=== PATIENT | female | born 1995 | race Caucasian/White ===

== ENCOUNTER 2019-06-07 21:33 | Emergency (ER) | payer SELFPAY ==
[2019-06-07 21:41] VITALS: BP 121/75; PULSE 137; RESP 18; TEMP 36.5; O2SAT 100; BMI 26.5
--- NOTE | 2019-06-07 22:41 | ED_ITS ---
HPI - General Adult General: Chief complaint: General Medical Stated complaint: HERPES FLARE UP Time Seen by Provider: 06/07/19 22:20 History of Present Illness: HPI narrative: Preston Reese is a 24-year-old female who comes in complaining of a flareup of her genital herpes. She states it has been going on for a month and she just cannot get control of her pain. She is had a for quite some time. She does admit to continued sexual activity and she has been told that she is recent been exposed to gonorrhea. She is denying any vaginal discharge or bleeding at this time. Associated symptoms: Deny chest pain, confusion, diaphoresis, dyspnea, headache(s), malaise, nausea, rash, palpitations, syncope or vomiting Review of Systems General: Reports: other (negative unless marked) Const: Denies: fever, chills, body aches, fatigue, malaise or diaphoresis Eyes: Denies: change in vision or blurry vision ENMT: Denies: throat pain, painful swallowing, hoarseness, ear pain, ear discharge, Change in hearing or nasal discharge Card: Denies: chest pain, palpitations, irregular heart rhythm, syncope, pre- syncope, shortness of breath on exertion or shortness of breath when lying down Resp: Denies: shortness of breath, productive cough, non-productive cough, wheezing, coughing up blood or chest congestion GI: Denies: abdominal pain, nausea, vomiting, vomiting blood, coffee grounds in vomit, diarrhea, constipation, cramping, blood in stool or black tarry stool : Denies: flank pain, painful urination, urinary frequency, urinary urgency, decreased urine ouput, urinary incontinence or blood in urine Musc: Denies: neck pain, back pain, extremity pain, extremity swelling, joint pain, joint swelling, joint warmth or joint stiffness Skin/Breast: Denies: rash, skin tenderness or yellow skin Neuro: Denies: headache, numbness in extremities, weakness in extremities, changes in sensation, lack of coordination, difficulty walking, dizziness, vertigo or confusion Endo: Denies: excessive thirst, tired all the time, cold intolerance, excessive sweating, flushing or hot flashes Alli/Lymph: Denies: easy bruising, easy bleeding, petechiae or enlarged lymph nodes All/Imm: Denies: hives, throat swelling, tongue swelling, facial swelling or acute wheezing PFSH ED PFSH: Medical History Genital herpes Social History Smoking and tobacco status: current every day smoker Female Reproductive History: Date of last menstrual period: 05/24/19 Physical Exam Const: COMMON NORMALS: no apparent distress, oriented x3, no limitations, healthy appearing and well nourished EXAM LIMITATIONS: no altered mental status GENERAL APPEARANCE: cooperative, well kempt and well developed ORIENTATION/CONSCIOUSNESS: Yes awake HENMT: COMMON NORMALS: normocephalic, head/scalp atraumatic, hearing grossly normal bilaterally, external ears normal, EAC's normal, external nose normal and moist oral mucous membranes HEAD & SCALP: normal to inspection, normocephalic and atraumatic FACE & SINUS: normal facial exam and face symmetric NOSE: external nose normal and nares normal EXTERNAL EAR: Yes external ears normal EXTERNAL AUDITORY CANAL: EAC's normal MOUTH: oral and palatal mucosa normal and tongue normal Eye: COMMON NORMALS: PERRL, EOMs intact bilaterally, conjunctivae normal and no scleral icterus GENERAL EYE: normal appearance of both eyes and normal light reflex CONJUNCTIVA: Yes conjunctivae normal SCLERA: sclerae normal CORNEA: Yes corneas normal PUPIL: Yes PERRL DIRECT OPHTHALMOSCOPY: Yes normal light reflex Neck/C-Spine: COMMON NORMALS: full ROM, no lymphadenopathy, supple, no meningeal signs and no JVD GENERAL: Yes normal visual inspection and Yes trachea midline CERVICAL SPINE: Yes cervical ROM normal Chest: COMMONS NORMALS: inspection of chest normal and palpation of chest normal Resp: COMMON NORMALS: normal respiratory effort, no retractions, no use of accessory muscles and clear to auscultation bilaterally EFFORT & INSPECTION: Yes able to speak in complete sentences AUSCULTATION: clear to auscultation bilaterally Cardio: COMMON NORMALS: no JVD, regular rate, regular rhythm, S1 normal heart sound, S2 normal heart sound, no gallops, no clicks, no murmurs and no rub JUGULAR VENOUS DISTENTION: no JVD RATE: regular rate RHYTHM: regular rhythm HEART SOUNDS: S1 normal and S2 normal GI: COMMON NORMALS: soft to palpation, non-tender, no hepatosplenomegaly and no masses INSPECTION: Yes normal to inspection PALPATION: Yes soft and Yes no hepatosplenomegaly : COMMON NORMALS: Yes no CVA tenderness BLADDER/KIDNEY EXAM: Yes no CVA tenderness EXTERNAL FEMALE EXAM: Yes other (Multiple herpetic lesions noted to both labia. Mild watery discharge.) Back/Pelvis: COMMON NORMALS: no CVA tenderness, thoracic and lumbar spine normal to inspection, no thoracic nor lumbar tenderness and thoraco-lumbar ROM normal Extremity: COMMON NORMALS: normal to inspection, full ROM, normal capillary refill, no joint enlargement, no clubbing, cyanosis or edema and no calf tenderness Neuro: COMMON NORMALS: oriented x3, CN's II-XII intact bilaterally, moves all extremities, no focal motor deficits and no sensory deficits noted MENINGEAL SIGNS: Yes no meningeal signs Psych: COMMON NORMALS: mental status grossly normal, thought process normal, cooperative, affect normal, speech normal and activity/motor behavior normal APPEARANCE: Yes well kempt SPEECH: Yes normal speech THOUGHT PROCESS: normal thought process Skin: COMMON NORMALS: no rashes or lesions noted, skin turgor normal, no jaundice, no petechiae and no mottling GENERAL SKIN EXAM: no rashes or lesions noted and turgor normal Course Vital Signs: Vital signs: Vital Signs Temperature 97.7 F 06/07/19 21:41 Pulse Rate 102 H 06/08/19 00:02 Respiratory Rate 18 06/08/19 00:02 Blood Pressure 99/77 06/08/19 00:02 Pulse Oximetry 99 06/08/19 00:02 MDM - General Adult MDM Narrative: Medical decision making narrative: Patient has significant herpetic outbreak at this time. I empirically treated her for gonorrhea and chlamydia and she went home on medicine for a UTI. She also received Valtrex for her outbreak of herpes. Lab Data: Attestation: I reviewed the patient's lab results. Labs: Lab Results 06/07/19 06/07/19 Range/Units 23:12 23:12 HCG, Qual Negative (Negative) Urine Color Yellow (Yellow) Urine Appearance Clear (CLEAR) Urine pH 6.5 (5-7) Ur Specific Gravit y 1.020 (1.005-1.030) Urine Protein Neg (Negative) Urine Glucose (UA) Norm (Normal) Urine Ketones Negative (Negative) Urine Blood 2+ H (Negative) Urine Nitrate Positive H (Negative) Urine Bilirubin Neg (NEGATIVE) Urine Urobilinogen 1 H (Negative) mg/dL Ur Leukocyte Valery ase 2+ H (Negative) Urine RBC 0-4 H (0-2) /hpf Urine WBC 25-40 H (0-5) /hpf Ur Squamous Epith Cells 15-25 H (0-5) Urine Bacteria 3+ H (NONE) Imaging Data^: CXR: My impression: No acute cardiopulmonary findings. Probable loop recorder present. Discharge Plan Discharge Patient Disposition: Home, Self-Care Clinical Impression: Acute cystitis with hematuria Genital herpes Qualifiers: Herpes simplex infection site: vulvovaginitis Qualified Code(s): A60.04 - Herpesviral vulvovaginitis Condition: Stable Prescriptions: New Valtrex 1 gram tablet 1,000 mg PO DAILY 5 Days Qty: 5 RF: 0 hydrocodone-acetaminophen 5-325 mg tablet 1 tab PO Q6H PRN (Reason: pain) Qty: 14 RF: 0 Keflex 500 mg capsule 500 mg PO Q12H 7 Days Qty: 14 RF: 0 Discharge Orders: Discharge Order (Routine); Ordered 06/07/19 Ordered By: Estela Plummer Discharge Diet: Usual diet Discharge Activity: Increase activity as tolerated Patient Instructions: Genital Herpes - Female, Genital Herpes Simplex (ED), Urinary Tract Infection in Women (ED) Activity Restrictions/Additional Instructions: NO SEXUAL ACTIVITY UNTIL ALL LESIONS CLEAR-using condoms can decrease risk of transmission to partner. Please follow up with primary care for re-evaluation in case lesions are not improving. They can also check to make sure your UTI has cleared. Return to the ED for worsening pain/lesions, abdominal pain, nausea/vomiting, fevers greater than 100.4, or any other concerns you may have. 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
[2019-06-07] MEDS: water for injection-sterile 10 ML (23:02)
[2019-06-07] MEDS: ondansetron 4 MG Tablet 8 MG PO (23:08)
[2019-06-07] MEDS: azithromycin 250 mg Tablet 1000 MG PO (23:08)
[2019-06-07] MEDS: cefTRIAXone 1,000 mg SDV 1000 MG IM (23:08)
[2019-06-07 23:31] LABS: HCG Qualitative Urine. Negative (Negative)
[2019-06-07 23:34] LABS: Urine Appearance Clear (CLEAR); Urine Color Yellow (Yellow); pH Urine 6.5 (5-7)
[2019-06-07 23:35] LABS: Bilirubin Urine Neg (NEGATIVE); Blood Urine 2+ (Negative); Glucose Urine UA Norm (Normal); Ketones Urine Negative (Negative); Leukocyte Esterase Urine 2+ (Negative); Nitrate Urine Positive (Negative); Protein Urine Neg (Negative); Urobilinogen Urine 1 mg/dL (Negative)
[2019-06-07 23:36] LABS: Add Urine Culture? Yes; Bacteria Urine 3+; RBC Urine 0-4 /hpf (0-2); Squamous Epithelial Cell Urine 15-25 (0-5); WBC Urine 25-40 /hpf (0-5)
[2019-06-07] MEDS: valACYclovir 1,000 mg Tablet 1000 MG PO (23:53)
[2019-06-07] MEDS: HYDROcodone-acetaminophen 5-325 mg Tablet 2 TAB PO (23:53)
[2019-06-08 00:02] VITALS: BP 99/77; PULSE 102; RESP 18; O2SAT 99
== END 2019-06-08 00:04 | disposition home or self-care (01) ==
PROVIDERS: Emergency Provider Emergency Medicine
DX: A60.04 Herpesviral vulvovaginitis (principal); N30.01 Acute cystitis with hematuria; F17.210 Nicotine dependence, cigarettes, uncomplicated
CPT/HCPCS: 12345; 81001; 81025; 87077; 87086; 87186; 87491; 87591; 96372; 99282; 99283; J0696; Q0144; Q0162

== ENCOUNTER 2020-07-30 01:19 | Emergency (ER) | payer MEDICAID, SELFPAY ==
[2020-07-30 01:24] VITALS: BP 141/86; PULSE 111; RESP 16; TEMP 36.4; O2SAT 100; BMI 30.2
--- NOTE | 2020-07-30 01:25 | W.ED.FEMALGU ---
HPI - Female Genitourinary General: Chief complaint: Urogenital-Female Stated complaint: Possible STD Time Seen by Provider: 07/30/20 01:21 Source: patient Mode of arrival: ambulatory Limitations: no limitations History of Present Illness: HPI Narrative: 25-year-old female states she was contacted today by some and she is expected with and told her that they tested positive for an STD. She is unsure what the STD was. She is asymptomatic currently. She denies any vaginal discharge. She states that she has had some slight abdominal cramping denies any pain currently. Denies any vaginal bleeding. Denies any fevers. Associated symptoms: Deny abdominal pain, headache(s) or nausea Date of Last Menstrual Period: 05/24/19 Review of Systems Const: Denies: fever(s), chills, body aches or change in appetite Eyes: Denies: blurry vision or eye discomfort ENMT: Denies: throat pain or dental pain Card: Denies: chest pain Resp: Denies: dyspnea GI: Denies: abdominal pain, nausea, vomiting or diarrhea : Denies: dysuria Musc: Denies: neck pain or back pain Skin/Breast: Denies: rash Neuro: Denies: headache(s) Psych: Denies: depression Alli/Lymph: Denies: easy bruising All/Imm: Denies: urticaria PFSH ED PFSH: Medical History (Updated 07/30/20 @ 02:09 by Gema Villanueva MD) Genital herpes Social History Smoking and tobacco status: current every day smoker Female Reproductive History: Date of last menstrual period: 05/24/19 Physical Exam Const: COMMON NORMALS: no acute distress, patient oriented x3 and healthy appearing HENMT: COMMON NORMALS: normocephalic and atraumatic HEAD & SCALP: normocephalic and atraumatic Eye: COMMON NORMALS: Equal, round and reactive pupils present and EOMs intact bilaterally PUPIL: Yes Equal, round and reactive pupils present Neck/C-Spine: COMMON NORMALS: full ROM and supple Chest: COMMONS NORMALS: normal inspection of the chest and normal palpation of entire chest wall Resp: COMMON NORMALS: normal respiratory effort, No retractions, No use of accessory muscles and clear to auscultation bilaterally AUSCULTATION: clear to auscultation bilaterally Cardio: COMMON NORMALS: regular rate, regular rhythm and No murmurs present (Cardio) RATE: regular rate RHYTHM: regular rhythm GI: COMMON NORMALS: Normal to inspection, nondistended, normoactive bowel sounds present, Soft to palpation, non-tender and no masses PALPATION: Yes Soft to palpation : OTHER: Slight amount of a clear discharge on speculum exam no cervicitis noted Extremity: COMMON NORMALS: normal to inspection and full ROM Neuro: COMMON NORMALS: patient oriented x3, moves all extremities and no focal motor deficits Psych: COMMON NORMALS: mental status grossly normal, Normal thought process present and cooperative THOUGHT PROCESS: Normal thought process present Skin: COMMON NORMALS: no rashes or lesions noted and no wounds GENERAL SKIN EXAM: no rashes or lesions noted Course Vital Signs: Vital signs: Vital Signs Temperature 97.6 F 07/30/20 01:24 Pulse Rate 111 H 07/30/20 01:24 Respiratory Rate 16 07/30/20 02:13 Blood Pressure 141/86 07/30/20 01:24 Pulse Oximetry 100 07/30/20 01:24 MDM - Female MDM Narrative: Medical decision making narrative: Patient presents here with STD exposure with possible STD. Will treat her with Rocephin and azithromycin here will follow cultures. Her wet prep is negative. She is stable for discharge and return if worsening. Lab Data: Labs: Lab Results 07/30/20 07/30/20 Range/Units 02:00 02:00 HCG, Qual Negative (Negative) Urine Color Yellow (Yellow) Urine Appearance Sl hazy (CLEAR) Urine pH 5 (5-7) Ur Specific Gravit y 1.015 (1.005-1.030) Urine Protein Neg (Negative) Urine Glucose (UA) Norm (Normal) Urine Ketones Negative (Negative) Urine Blood Neg (Negative) Urine Nitrate Positive H (Negative) Urine Bilirubin Neg (Negative) Urine Urobilinogen Norm (Negative) mg/dL Ur Leukocyte Valery ase Negative (Negative) Urine RBC 0-4 H (0-2) /hpf Urine WBC 0-4 H (0-5) /hpf Ur Squamous Epith Cells 0-4 H (0-5) /hpf Amorphous Sediment Not Reportable Urine Bacteria 3+ H (NONE) /hpf Discharge Plan Discharge Patient Disposition: Home Clinical Impression: Exposure to STD Condition: Stable Prescriptions: No Action hydrocodone-acetaminophen 5-325 mg tablet 1 tab PO Q6H PRN (Reason: pain) Qty: 14 RF: 0 Discharge Orders: Discharge ED (Routine); Ordered 07/30/20 Ordered By: Gema Villanueva Discharge Diet: Advance as tolerated Discharge Activity: Resume usual activity Patient Instructions: Sexually Transmitted Diseases (ED), Safe Sex (ED) 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
--- NOTE | 2020-07-30 01:51 | PC.NURSE ---
Assisted MD Villanueva with pelvic exam. Pt tolerated well.
[2020-07-30] MEDS: azithromycin 250 mg Tablet 1000 MG PO (02:00)
[2020-07-30 02:12] LABS: Add Urine Culture? Yes; Add Urine Microscopic? YES; Bacteria Urine 3+ /hpf; Bilirubin Urine Neg (Negative); Blood Urine Neg (Negative); Glucose Urine UA Norm (Normal); HCG Qualitative Urine. Negative (Negative); Ketones Urine Negative (Negative); Leukocyte Esterase Urine Negative (Negative); Nitrate Urine Positive (Negative); Protein Urine Neg (Negative); RBC Urine 0-4 /hpf (0-2); Specific Gravity, Urine 1.015 (1.005-1.030); Squamous Epithelial Cell Urine 0-4 /hpf (0-5); Urine Appearance SL Hazy (CLEAR); Urine Color Yellow (Yellow); Urobilinogen Urine Norm (Negative); WBC Urine 0-4 /hpf (0-5); pH Urine 5 (5-7)
[2020-07-30 02:13] VITALS: RESP 16
--- NOTE | 2020-07-31 17:59 | PC.NURSE ---
left message with pt's home for her to call ER and get + chalmydia results.
--- NOTE | 2020-07-31 20:13 | PC.NURSE ---
contact made to Preston Mann and informed her that she was positive for Chalmydia Trachomatis. Pt has been treated prior to discharge and was told to inform her partners that she was positive and that they need to be treated. SHe states she would and follow up with PCP or clinic.
== END 2020-07-30 02:14 | disposition home or self-care (01) ==
PROVIDERS: Emergency Provider Emergency Medicine
DX: Z20.2 Contact with and (suspected) exposure to infections with a predominantly sexual mode of transmission (principal)
CPT/HCPCS: 81001; 81025; 87077; 87086; 87186; 87210; 87491; 87591; 96372; 99283; J0696; Q0144

== ENCOUNTER 2021-03-13 05:45 | Emergency (ER) | payer MEDICAID, SELFPAY ==
[2021-03-13 05:54] VITALS: BP 132/73; PULSE 120; RESP 20; TEMP 36.6; O2SAT 99; BMI 30.1
[2021-03-13 05:57] VITALS: BP 132/73; PULSE 114; RESP 18; O2SAT 100
--- NOTE | 2021-03-13 06:02 | W.ED.WOUNDLC ---
HPI - Wound/Laceration General: Chief Complaint: Wound/Laceration Stated Complaint: cut hand Time Seen by Provider: 03/13/21 06:02 Source: patient Mode of arrival: ambulatory History of Present Illness: 6-year-old female presents to the emergency room with complaint of a laceration to her right fifth finger. She was cutting some cardboard with a knife and slipped and cut her finger. She is not able to flex the finger. Onset (ago): minute(s) Extremity Location: Right: hand (Right fifth finger palmar surface) Place: home Context: accidental Associated symptoms: Reports inability to move; Denies chills, fever(s), nausea or vomiting Treatments prior to arrival: bandage Review of Systems Const: Denies: fever(s), chills, body aches, change in appetite, fatigue or malaise Card: Denies: chest pain, edema, dyspnea on exertion or orthopnea Resp: Denies: dyspnea, productive cough or non-productive cough GI: Denies: abdominal pain, nausea, vomiting, hematemesis, coffee ground emesis, diarrhea, constipation, bloating, hematochezia or melena : Denies: flank pain, difficulty voiding, dysuria, urinary frequency or urinary urgency PFS ED PFSH: Medical History Genital herpes STD (female) Social History Smoking and tobacco status: current every day smoker Female Reproductive History: Date of last menstrual period: 05/24/19 Physical Exam Const: COMMON NORMALS: no acute distress GENERAL APPEARANCE: cooperative and comfortable ORIENTATION/CONSCIOUSNESS: Yes awake, Yes oriented to person, Yes oriented to place and Yes oriented to time HENMT: COMMON NORMALS: normocephalic, atraumatic and hearing grossly normal bilaterally HEAD & SCALP: normocephalic and atraumatic Resp: COMMON NORMALS: normal respiratory effort, No retractions, No use of accessory muscles and clear to auscultation bilaterally AUSCULTATION: clear to auscultation bilaterally Cardio: COMMON NORMALS: regular rate, regular rhythm and No murmurs present (Cardio) RATE: regular rate RHYTHM: regular rhythm Extremity: OTHER: Right fifth finger along the palmar surface at the PIP joint is a full-thickness laceration across the finger. There is a little bit of an angulated portion proximal at the lateral aspect. It is full-thickness involving the tendon. Patient has altered sensation to the tip and inability to flex the finger except at the metacarpophalangeal joint. Neuro: SENSORIUM/ORIENTATION: Yes oriented to person, Yes oriented to place and Yes oriented to time Skin: COMMON NORMALS: no rashes or lesions noted GENERAL SKIN EXAM: no rashes or lesions noted Procedures Laceration Laceration 1: Site: hand (Right hand fifth finger) Side (If applicable): right Size (cm): 2 Description: linear Depth: involves muscle layer and involves tendon Local Anesthetic: lidocaine 1% (Digital nerve block enforced at the site locally) Amount of anesthesia used (mL): 6 Pre-repair: wound explored and irrigated extensively Skin layer closed with: nylon Size (cm): 4-0 Technique: simple, interrupted Subcutaneous layer closed with: vicryl Size: 5-0 Number of sutures: 1 Technique: other (Plan cleaning irrigating the wound there is a singular arterial laceration. This was tied off with a [id number] 5-0 Vicryl suture) Course Vital Signs: Vital signs: Vital Signs Temperature 97.8 F 03/13/21 05:54 Pulse Rate 114 H 03/13/21 05:57 Respiratory Rate 18 03/13/21 05:57 Blood Pressure 132/73 03/13/21 05:57 Pulse Oximetry 100 03/13/21 05:57 MDM - Wound/Laceration Medical Decision Making Laceration repaired as above. Wound care instructions given. Will have case management make arrangements for a referral to hand surgery for repair of tendon. Discharge Plan Discharge Patient Disposition: Home Clinical Impression: Laceration, Flexor tendon laceration of finger with open wound Condition: Stable Prescriptions: New cephalexin 500 mg capsule 500 mg PO TID 5 Days Qty: 15 0RF mupirocin 2 % ointment 1 applic topical BID Qty: 15 0RF No Action naproxen [Naprosyn] 500 mg tablet 500 mg PO BID Qty: 20 0RF Discharge Orders: Discharge ED (Routine); Ordered 03/13/21 Ordered By: Miguel Desouza Patient Instructions: Laceration (ED), Acute Wounds (ED), Opioid Safety Activity Restrictions/Additional Instructions: Wound care instructions as per handout. Apply topical antibiotic ointment twice a day. Case management make arrangements for you to see the hand surgeon to repair the tendon laceration. 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
[2021-03-13] MEDS: tetanus-dipt-pertussis 0.5 mL SDV IM (06:22)
[2021-03-13] MEDS: lidocaine 1% INJ 20 mL INJECTION (06:35)
[2021-03-13] MEDS: bacitracin ointment Pkt 1 EACH TOPICAL (07:23)
[2021-03-13 07:24] VITALS: BP 128/68; PULSE 110; RESP 18; O2SAT 99
--- NOTE | 2021-03-16 10:50 | DCPLANNER ---
Addendum entered by Cesia Chanel 03/20/21 09:48: Letty from ortho emailed case coordinator stating that after review of patients chart, that patient needs to follow up with a hand surgeon. range manager called patient at phone number [phone], phone line is busy. range manager was unable to speak with anyone else on patients face sheet. range manager was going to ask where patient would like to go for follow up. Original Note: range manager had message to schedule a follow up appointment for patient with ortho. range manager called the ortho clinic, spoke with Letty, gave clinic patients information. range manager was told that patients information would be printed and reviewed. Clinic will call patient with appointment information.
== END 2021-03-13 07:23 | disposition home or self-care (01) ==
PROVIDERS: Emergency Provider Family Medicine
DX: S61.216A Laceration without foreign body of right little finger without damage to nail, initial encounter (principal); S66.126A Laceration of flexor muscle, fascia and tendon of right little finger at wrist and hand level, initial encounter; F17.210 Nicotine dependence, cigarettes, uncomplicated; W26.0XXA Contact with knife, initial encounter; Z23 Encounter for immunization
CPT/HCPCS: 12041; 90471; 90715; 99283

== ENCOUNTER 2021-03-17 01:58 | Emergency (ER) | payer MEDICAID, SELFPAY ==
[2021-03-17 02:03] VITALS: BP 135/94; PULSE 109; RESP 16; O2SAT 95; BMI 29.6
--- NOTE | 2021-03-17 02:07 | W.ED.FEMALGU ---
HPI - Female Genitourinary General: Chief complaint: General Medical Stated complaint: STD Time Seen by Provider: 03/17/21 02:02 Source: patient Mode of arrival: ambulatory Limitations: no limitations History of Present Illness: Patient is a 26-year-old female who presents to ED today with a concern for possible STD. Patient states her boyfriend was recently seen for complaints of penile discharge and he was told that all sexual partners need to get tested/treated. Patient is complaining of some dysuria, mild vaginal itching and discharge. She denies dyspareunia. She is not having any vaginal bleeding. No fevers, chills, body aches, nausea/vomiting. She also has a complaint of a lump inside her vaginal canal. MD elicited complaint: dysuria, vaginal discharge, possible STD and genital itching Onset (ago): day(s) Severity: mild Vaginal discharge: white Vaginal bleeding: none Urinary symptoms: Dysuria Associated symptoms: Reports vaginal discharge; Deny abdominal pain or nausea Sexual activity: Yes Patient : No Date of Last Menstrual Period: 03/15/21 Review of Systems Const: Denies: fever(s), chills, body aches, fatigue or malaise GI: Denies: abdominal pain, nausea, vomiting, diarrhea, change in bowel habits or change in stool character : Reports: dysuria, genital pruritis and vaginal discharge; Denies: flank pain, difficulty voiding, urinary frequency, urinary urgency, urinary hesitancy, hematuria, vaginal bleeding or pelvic pain Musc: Denies: back pain PFS ED PFSH: Medical History Genital herpes STD (female) Social History Smoking and tobacco status: current every day smoker Female Reproductive History: Date of last menstrual period: 03/15/21 Physical Exam Const: COMMON NORMALS: no acute distress, patient oriented x3, no limitations, alert and well nourished GI: COMMON NORMALS: Normal to inspection, nondistended, normoactive bowel sounds present, Soft to palpation, non-tender, No hepatosplenomegaly present and no masses PALPATION: Yes Soft to palpation and Yes No hepatosplenomegaly present : COMMON NORMALS: Yes no CVA tenderness, Yes normal external appearance, Yes normal bimanual exam, Yes No adnexal tenderness and Yes no masses BLADDER/KIDNEY EXAM: Yes no CVA tenderness EXTERNAL FEMALE EXAM: Yes normal appearance of the urethra SPECULUM EXAM - CERVIX: Yes Abnormal cervical discharge present yellow, No Cervical lesion present, No Cervical mass present, No Cervical tenderness present and Yes Other cervical findings present (cervical os easily bleeds with swab collection) BIMANUAL EXAM - VAGINA & UTERUS: Yes normal bimanual exam and No Cervical tenderness present BIMANUAL EXAM - ADNEXA, OTHER: Yes normal adnexae OTHER: cervix itself appears normal apart from large amount of thick yellow discharge present; cervical os is friable and bleeds easily with swab collection Back/Pelvis: COMMON NORMALS: no CVA tenderness Neuro: COMMON NORMALS: patient oriented x3 SENSORIUM/ORIENTATION: Yes alert Course Vital Signs: Vital signs: Vital Signs Pulse Rate 109 H 03/17/21 02:03 Respiratory Rate 16 03/17/21 02:03 Blood Pressure 135/94 03/17/21 02:03 Pulse Oximetry 95 03/17/21 02:03 MDM - Female Medical Decision Making Patient here with complaints of vaginal discharge, itching, and some dysuria. She states sexual partner was having symptoms of penile discharge. I have no concerns for PID at this time but pelvic exam is significant for cervicitis/discharge. She will be given IM rocephin and placed on oral doxycycline for gonorrhea/chlamydia coverage. Trich negative. Recommend abstaining from sexual activity until treatment finished and tests of cure performed. All sexual partners need to get tested and treated. Lab Data Laboratory Results Urine Color Yellow (Yellow) 03/17/21 02:20 Urine Appearance Sl hazy (CLEAR) 03/17/21 02:20 Urine pH 7 (5-7) 03/17/21 02:20 Ur Specific [place] 1.010 (1.005-1.030) 03/17/21 02:20 Urine Protein Neg (Negative) 03/17/21 02:20 Urine Glucose (UA) Norm (Normal) 03/17/21 02:20 Urine Ketones Negative (Negative) 03/17/21 02:20 Urine Blood Neg (Negative) 03/17/21 02:20 Urine Nitrate Positive (Negative) H 03/17/21 02:20 Urine Bilirubin Neg (Negative) 03/17/21 02:20 Urine Urobilinogen 1 mg/dL (Negative) H 03/17/21 02:20 Ur Leukocyte Esterase Trace (Negative) H 03/17/21 02:20 Urine RBC 0-4 /hpf (0-2) H 03/17/21 02:20 Urine WBC 15-25 /hpf (0-5) H 03/17/21 02:20 Ur Squamous Epith Cells 0-4 /hpf (0-5) H 03/17/21 02:20 Amorphous Sediment Not Reportable 03/17/21 02:20 Urine Bacteria 4+ /hpf (NONE) H 03/17/21 02:20 Urine Mucus 4+ /hpf 03/17/21 02:20 Urine HCG, Qual Negative (Negative) 03/17/21 02:20 Discharge Plan Discharge Patient Disposition: Home Clinical Impression: Concern about STD in female without diagnosis, Cervical discharge Condition: Stable Prescriptions: New doxycycline monohydrate 100 mg capsule 100 mg PO Q12H 7 Days Qty: 14 0RF No Action naproxen [Naprosyn] 500 mg tablet 500 mg PO BID Qty: 20 0RF cephalexin 500 mg capsule 500 mg PO TID 5 Days Qty: 15 0RF mupirocin 2 % ointment 1 applic topical BID Qty: 15 0RF Discharge Orders: Discharge ED (Routine); Ordered 03/17/21 Ordered By: Estela Plummer Referrals: Skinny Galarza DO [Primary Care Provider] - Patient Instructions: Cervicitis (ED), Sexually Transmitted Diseases (ED), Safe Sex Practices (ED) Activity Restrictions/Additional Instructions: As we discussed all sexual partners need to get tested and treated. You should be contacted if your gonorrhea/chlamydia swabs come back positive. You need to have a test of cure performed in one week-this can be performed at the health department or through primary care. All sexual toys need to be thoroughly disinfected. Once all sexual partners have been treated and test of cures have been performed you may reengage in sexual activity. 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
[2021-03-17] MEDS: azithromycin 250 mg Tablet 1000 MG PO (02:39)
[2021-03-17 02:43] LABS: Add Urine Microscopic? YES; Bilirubin Urine Neg (Negative); Blood Urine Neg (Negative); Glucose Urine UA Norm (Normal); Ketones Urine Negative (Negative); Leukocyte Esterase Urine Trace (Negative); Nitrate Urine Positive (Negative); Protein Urine Neg (Negative); Urine Appearance SL Hazy (CLEAR); Urine Color Yellow (Yellow); Urobilinogen Urine 1 mg/dL (Negative); pH Urine 7 (5-7)
[2021-03-17 02:54] LABS: Add Urine Culture? Yes; Bacteria Urine 4+ /hpf; Mucus Urine 4+ /hpf; RBC Urine 0-4 /hpf (0-2); Squamous Epithelial Cell Urine 0-4 /hpf (0-5); WBC Urine 15-25 /hpf (0-5)
== END 2021-03-17 03:05 | disposition home or self-care (01) ==
PROVIDERS: Emergency Provider Physician Assistant; PCP Electrodiagnostic Medicine
DX: N89.8 Other specified noninflammatory disorders of vagina (principal); Z20.2 Contact with and (suspected) exposure to infections with a predominantly sexual mode of transmission; F17.210 Nicotine dependence, cigarettes, uncomplicated
CPT/HCPCS: 81001; 81025; 87077; 87086; 87186; 87210; 87491; 87591; 96372; 99283; J0696; Q0144

== ENCOUNTER 2022-05-15 00:08 | Emergency (ER) | payer MEDICAID, SELFPAY ==
[2022-05-15 00:17] VITALS: BP 138/70; PULSE 111; RESP 18; TEMP 37; O2SAT 97; BMI 30.2
--- NOTE | 2022-05-15 00:17 | ED_ITS ---
HPI - Skin/Abscess/Foreign Bdy General: Chief complaint: Wound/Laceration Stated complaint: back of left thigh tattoo infection Time Seen by Provider: 05/15/22 00:16 History of Present Illness: 27-year-old female comes in today for complaints of redness surrounding a tattoo she had done to her left thigh about 1 week ago. Patient reports tenderness and erythema to the site of the tattoo. Patient denies any fever or nausea or vomiting. Patient reports significant pain to the site. Patient appears in mild pain. Patient appears afebrile. Associated symptoms: Deny fever(s) Review of Systems General: Reports: 10 or more systems reviewed and unremarkable except in HPI and below Const: Denies: fever(s) ENMT: Denies: throat pain Musc: Reports: extremity pain Skin/Breast: Reports: erythema PFSH ED PFSH: Medical History Genital herpes STD (female) Social History Smoking and tobacco status: current every day smoker Physical Exam Const: COMMON NORMALS: alert HENMT: COMMON NORMALS: normocephalic HEAD & SCALP: normocephalic Neck/C-Spine: COMMON NORMALS: full ROM Resp: COMMON NORMALS: normal respiratory effort Back/Pelvis: COMMON NORMALS: thoracic and lumbar spine normal to inspection Extremity: LEFT LOWER EXTREMITY: Yes upper leg (8 cm area of redness with a central tattoo with some sloughing of the skin) Neuro: SENSORIUM/ORIENTATION: Yes alert Skin: NARRATIVE SKIN EXAM: Area of redness to the left lateral thigh surrounding tattoo clear drainage Course Vital Signs: Vital signs: Vital Signs Temperature 98.6 F 05/15/22 00:17 Pulse Rate 111 H 05/15/22 00:17 Respiratory Rate 18 05/15/22 00:17 Blood Pressure 138/70 05/15/22 00:17 Pulse Oximetry 97 05/15/22 00:17 MDM - Skin/Abscess/Foreign Bdy Medicial Decision Making Patient comes in today for probable infection to the tattoo. On exam she has significant erythema surrounding a tattoo to the left thigh. Vital signs are normal except for some elevation in pulse at 111. Differential diagnosis includes cellulitis, skin reaction to tattoo dye, abrasion. No signs of severe illness is noted. Reviewed exam with patient with recommendations for treatment and follow-up. Patient will be treated with antibiotics for cellulitis of the skin. Patient reported understanding of care plan and need for return to the ER for worsening symptoms. Discharge Plan Discharge Patient Disposition: Home Clinical Impression: Cellulitis and abscess of left leg Condition: Stable Prescriptions: New amoxicillin-pot clavulanate 875-125 mg tablet 1 tab PO BID Qty: 14 0RF mupirocin 2 % ointment 1 applic topical BID Qty: 22 0RF hydrocodone-acetaminophen 5-325 mg tablet 1 tab PO Q8H PRN (Reason: pain (scale score 7-10)) Qty: 6 0RF No Action naproxen [Naprosyn] 500 mg tablet 500 mg PO BID Qty: 20 0RF mupirocin 2 % ointment 1 applic topical BID Qty: 15 0RF Discharge Orders: Discharge ED (Routine); Ordered 05/15/22 Ordered By: Raheem Katz Referrals: Skinny Galarza, [Primary Care Provider] - Discharge Diet: Usual diet Discharge Activity: Increase activity as tolerated Patient Instructions: Cellulitis (ED), Opioid Safety Activity Restrictions/Additional Instructions: Wash area gently with mild soap and water twice a day. Apply mupirocin ointment. Use amoxicillin with potassium clavulanate 1 tablet twice a day for the next 7 days. Use hydrocodone for severe pain. Follow-up with primary care for further instructions. Return to ED for new concerns. 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
[2022-05-15] MEDS: amoxicillin-clav 875-125 mg Tablet 1 TAB PO (00:33)
[2022-05-15] MEDS: HYDROcodone-acetaminophen 5-325 mg Tablet 1 TAB PO (00:34)
[2022-05-15] MEDS: mupirocin oint 22 gm 1 APPLIC TOPICAL (00:34)
== END 2022-05-15 00:45 | disposition home or self-care (01) ==
PROVIDERS: Emergency Provider Nurse Practitioner Family; PCP Electrodiagnostic Medicine
DX: L03.116 Cellulitis of left lower limb (principal); L02.416 Cutaneous abscess of left lower limb; F17.210 Nicotine dependence, cigarettes, uncomplicated
CPT/HCPCS: 99283

== ENCOUNTER 2022-08-09 22:09 | Emergency (ER) | payer MEDICAID, SELFPAY ==
[2022-08-09 22:34] VITALS: BP 125/80; PULSE 108; RESP 16; TEMP 36.7; O2SAT 98
[2022-08-09 23:26] LABS: HCG Qualitative Urine. Negative (Negative)
--- NOTE | 2022-08-09 23:26 | W.ED.FEMALGU ---
HPI - Female Genitourinary General: Chief complaint: Urogenital-Female Stated complaint: STD Time Seen by Provider: 08/09/22 23:12 PFSH ED PFSH: Medical History Genital herpes STD (female) Social History Smoking and tobacco status: current every day smoker Course Vital Signs: Vital signs: Vital Signs Temperature 98.1 F 08/09/22 22:34 Pulse Rate 108 H 08/09/22 22:34 Respiratory Rate 16 08/09/22 22:34 Blood Pressure 125/80 08/09/22 22:34 Pulse Oximetry 98 08/09/22 22:34 Oxygen Delivery Me thod Room Air 08/09/22 22:34 Discharge Plan Discharge Condition: Stable Prescriptions: No Action naproxen [Naprosyn] 500 mg tablet 500 mg PO BID Qty: 20 0RF mupirocin 2 % ointment 1 applic topical BID Qty: 15 0RF amoxicillin-pot clavulanate 875-125 mg tablet 1 tab PO BID Qty: 14 0RF mupirocin 2 % ointment 1 applic topical BID Qty: 22 0RF hydrocodone-acetaminophen 5-325 mg tablet 1 tab PO Q8H PRN (Reason: pain (scale score 7-10)) Qty: 6 0RF Referrals: Skinny Galarza DO [Primary Care Provider] - Coding Level of Care Code 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
[2022-08-09 23:41] LABS: Add Urine Microscopic? YES; Bilirubin Urine Neg (Negative); Blood Urine 2+ (Negative); Glucose Urine UA Norm (Normal); Ketones Urine Negative (Negative); Leukocyte Esterase Urine Negative (Negative); Nitrate Urine Negative (Negative); Protein Urine Neg (Negative); Urine Color Yellow (Yellow); Urobilinogen Urine Neg (Negative); pH Urine 5 (5-7)
[2022-08-09 23:47] LABS: Bacteria Urine 1+ /hpf; Sperm Urine 2+ /hpf; WBC Urine 0-4 /hpf (0-5)
[2022-08-09 23:48] LABS: Add Urine Culture? No; Squamous Epithelial Cell Urine 15-25 /hpf (0-5)
== END 2022-08-10 00:12 | disposition home or self-care (01) ==
PROVIDERS: Emergency Provider Nurse Practitioner Family; PCP Electrodiagnostic Medicine
DX: Z53.21 Procedure and treatment not carried out due to patient leaving prior to being seen by health care provider (principal)
CPT/HCPCS: 81001; 81025; 87491; 87591; 99283

== ENCOUNTER 2022-09-07 01:46 | Emergency (ER) | payer MEDICAID, SELFPAY ==
--- NOTE | 2022-09-07 01:48 | XRR_ITS ---
PROCEDURE INFORMATION: Exam: XR Abdomen Exam date and time: 09/07/2022 2:07 AM Age: 27 years old Clinical indication: Abdominal pain; Generalized; Possible UTI, kidney stone; TECHNIQUE: Imaging protocol: Radiologic exam of the abdomen. Views: Frontal supine view of the abdomen. 1 View. COMPARISON: No relevant prior studies available. FINDINGS: Gastrointestinal tract: Normal. No bowel dilation. Bones/joints: Unremarkable. XR/XR KUB [id number] IMPRESSION: No acute findings.
--- NOTE | 2022-09-07 01:49 | ED_ITS ---
HPI - Abdominal Pain General: Stated Complaint: Possible Kidney Stones Time Seen by Provider: 09/07/22 01:49 PFSH ED PFSH: Medical History Genital herpes STD (female) Social History Smoking and tobacco status: current every day smoker Discharge Plan Discharge Condition: Stable Prescriptions: No Action naproxen [Naprosyn] 500 mg tablet 500 mg PO BID Qty: 20 0RF mupirocin 2 % ointment 1 applic topical BID Qty: 15 0RF amoxicillin-pot clavulanate 875-125 mg tablet 1 tab PO BID Qty: 14 0RF mupirocin 2 % ointment 1 applic topical BID Qty: 22 0RF hydrocodone-acetaminophen 5-325 mg tablet 1 tab PO Q8H PRN (Reason: pain (scale score 7-10)) Qty: 6 0RF Referrals: Skinny Galarza DO [Primary Care Provider] - Coding Level of Care Code 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
[2022-09-07 02:00] VITALS: BP 139/73; PULSE 104; RESP 18; TEMP 36.6; O2SAT 99; BMI 33.8
--- NOTE | 2022-09-07 02:01 | ED_ITS ---
HPI - General Adult General: Chief complaint: Urogenital-Female Stated complaint: Possible Kidney Stones Time Seen by Provider: 09/07/22 01:49 History of Present Illness: 27-year-old female comes in today for complaints of burning with urination. Patient was concerned that she may have a urinary tract infection or a kidney stone. Patient reports no fever or chills. Patient has a history of seizure disorder but takes no routine medicines. Review of Systems General: Reports: 10 or more systems reviewed and unremarkable except in HPI and below : Reports: difficulty voiding PFSH ED PFSH: Medical History Genital herpes STD (female) Social History Smoking and tobacco status: current every day smoker Physical Exam Const: COMMON NORMALS: alert HENMT: COMMON NORMALS: normocephalic HEAD & SCALP: normocephalic Neck/C-Spine: COMMON NORMALS: full ROM Resp: COMMON NORMALS: normal respiratory effort and clear to auscultation bilaterally AUSCULTATION: clear to auscultation bilaterally Cardio: COMMON NORMALS: regular rate RATE: regular rate : BLADDER/KIDNEY EXAM: Yes CVA tenderness (Responded worse on the right than the left) Back/Pelvis: GENERAL BACK: Yes CVA tenderness (Responded worse on the right than the left) Extremity: COMMON NORMALS: normal to inspection Neuro: SENSORIUM/ORIENTATION: Yes alert Skin: COMMON NORMALS: turgor normal GENERAL SKIN EXAM: turgor normal Course Vital Signs: Vital signs: Vital Signs Temperature 97.9 F 09/07/22 02:00 Pulse Rate 104 H 09/07/22 02:00 Respiratory Rate 18 09/07/22 02:00 Blood Pressure 139/73 09/07/22 02:00 Pulse Oximetry 99 09/07/22 02:00 Oxygen Delivery Me thod Room Air 09/07/22 02:00 [facility] - General Adult Medical Decision Making 27-year-old female comes in today with complaints of dysuria. Patient reports symptoms for last 3 days. On exam abdomen soft nontender. Bilateral CVA areas are tender to percussion. Skin turgor is normal. Vital signs are normal. Differential diagnosis includes but not limited to renal calculi, urinary tract infection, STI, yeast infection. Urinalysis was remarkable for increased number of red blood cells, white blood cells, and leukocyte estrase. KUB showed no signs of renal calculi or other abnormalities. Believe the patient probably has a mild case of cystitis. We will treat with Cipro 500 for 5 days for urinary tract infection. Patient reported understanding agreed to plan. Lab Data Radiology Impressions KUB X-Ray 09/07/22 01:48 IMPRESSION: No acute findings. Laboratory Results HCG, Qual Negative (Negative) 09/07/22 02:25 Urine Color Light yellow (Yellow) 09/07/22 02:25 Urine Appearance Hazy (CLEAR) A 09/07/22 02:25 Urine pH 6 (5-7) 09/07/22 02:25 Ur Specific [place] 1.025 (1.005-1.030) 09/07/22 02:25 Urine Protein 1+ (Negative) H 09/07/22 02:25 Urine Glucose (UA) Norm (Normal) 09/07/22 02:25 Urine Ketones Negative (Negative) 09/07/22 02:25 Urine Blood 2+ (Negative) H 09/07/22 02:25 Urine Nitrate Negative (Negative) 09/07/22 02:25 Urine Bilirubin Neg (Negative) 09/07/22 02:25 Urine Urobilinogen 1 mg/dL (Negative) H 09/07/22 02:25 Ur Leukocyte Esterase 1+ (Negative) H 09/07/22 02:25 Urine RBC 25-40 /hpf (0-2) H 09/07/22 02:25 Urine WBC 0-4 /hpf (0-5) H 09/07/22 02:25 Ur Squamous Epith Cells 5-10 /hpf (0-5) H 09/07/22 02:25 Amorphous Sediment Not Reportable 09/07/22 02:25 Urine Bacteria 1+ /hpf (NONE) H 09/07/22 02:25 Urine Mucus 2+ /hpf 09/07/22 02:25 Discharge Plan Discharge Patient Disposition: Home Clinical Impression: Cystitis Condition: Stable Prescriptions: New ciprofloxacin HCl 500 mg tablet 500 mg PO BID Qty: 10 0RF Discharge Orders: Discharge ED (Routine); Ordered 09/07/22 Ordered By: Raheem Katz Referrals: Skinny Galarza, [Primary Care Provider] - Discharge Diet: Usual diet Discharge Activity: Increase activity as tolerated Patient Instructions: Urinary Tract Infection in Women (ED) Activity Restrictions/Additional Instructions: Home and rest. Drink plenty of water and fluids. Take antibiotic as directed. Follow-up with primary care in 1 week for recheck. Return to ED for new concerns or worsening symptoms. 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
[2022-09-07 02:33] LABS: HCG Qualitative Urine. Negative (Negative)
[2022-09-07 02:34] LABS: Add Urine Microscopic? YES; Bilirubin Urine Neg (Negative); Blood Urine 2+ (Negative); Glucose Urine UA Norm (Normal); Ketones Urine Negative (Negative); Leukocyte Esterase Urine 1+ (Negative); Nitrate Urine Negative (Negative); Protein Urine 1+ (Negative); Specific Gravity, Urine 1.025 (1.005-1.030); Urine Appearance Hazy (CLEAR); Urine Color Light yellow (Yellow); Urobilinogen Urine 1 mg/dL (Negative); pH Urine 6 (5-7)
[2022-09-07 02:36] LABS: RBC Urine 25-40 /hpf (0-2)
[2022-09-07 02:37] LABS: Add Urine Culture? Yes; Bacteria Urine 1+ /hpf; Mucus Urine 2+ /hpf; WBC Urine 0-4 /hpf (0-5)
[2022-09-07] MEDS: ciprofloxacin 500 mg Tablet PO (03:01)
[2022-09-07 03:06] VITALS: BP 119/76; PULSE 93; RESP 18; O2SAT 99
== END 2022-09-07 03:08 | disposition home or self-care (01) ==
PROVIDERS: Emergency Provider Nurse Practitioner Family; PCP Electrodiagnostic Medicine
DX: N30.90 Cystitis, unspecified without hematuria (principal); F17.210 Nicotine dependence, cigarettes, uncomplicated
CPT/HCPCS: 74018; 81001; 81025; 87077; 87086; 87186; 99284

== ENCOUNTER 2022-10-31 19:46 | Emergency (ER) | payer MEDICAID, SELFPAY ==
[2022-10-31 19:47] VITALS: BP 134/84; PULSE 100; RESP 16; TEMP 36.7; O2SAT 99
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
[2022-10-31] MEDS: oxyCODONE-APAP 5-325 mg Tablet 2 TAB PO (20:49)
[2022-10-31 20:55] VITALS: BP 134/84; PULSE 100; RESP 16; TEMP 36.7; O2SAT 99
== END 2022-10-31 20:56 | disposition home or self-care (01) ==
PROVIDERS: Emergency Provider Emergency Medicine; PCP Electrodiagnostic Medicine
DX: S60.221A Contusion of right hand, initial encounter (principal); Y04.2XXA Assault by strike against or bumped into by another person, initial encounter; F17.210 Nicotine dependence, cigarettes, uncomplicated
CPT/HCPCS: 73130; 99283

== ENCOUNTER 2023-05-21 21:23 | Emergency (ER) | payer MEDICAID, SELFPAY ==
[2023-05-21 21:28] VITALS: BP 121/77; PULSE 104; RESP 18; TEMP 37.1; O2SAT 98; BMI 35.9
--- NOTE | 2023-05-21 21:42 | USR_ITS ---
PROCEDURE INFORMATION: Exam: US First Trimester, Transabdominal and US , Transvaginal Exam date and time: 05/21/2023 10:41 PM Age: 28 years old Clinical indication: Lmp or gestational age (in weeks): 6w1d per patient; Antepartum complications; Bleeding; Additional info: , vaginal bleeding LABS AND CLINICAL REPORTS: Last menstrual period start date: 04/08/2023 TECHNIQUE: Imaging protocol: Real-time transabdominal obstetrical ultrasound of the maternal pelvis and a first trimester , less than 14 weeks 0 days, with image documentation. Transvaginal imaging was used for better evaluation of the fetus, adnexa, and/or cervix. COMPARISON: No relevant prior studies available. FINDINGS: Gestation: No intrauterine gestation or ectopic identified. Embryonic/ heart rate: FHR Extra-embryonic membranes/Placenta: Unremarkable. No subchorionic bleed. Amniotic fluid: Amniotic fluid and extra-amniotic fluid is normal for gestational age. BIOMETRY: Gestational age (AUA): EGA MATERNAL: Uterus: Normal. Endometrial stripe is normal, measuring 0.3 cm in thickness. Cervix: Nonspecific subtle focus of slightly increased echogenicity suggested along the posterior cervix wall, measuring approximately 1.6 x 1.4 x 2.2 cm. Right ovary/adnexa: Unremarkable ovary. Left ovary/adnexa: Unremarkable ovary. Intraperitoneal space: Trace free fluid noted in the pelvis and right adnexal region, likely physiologic. US/US OB <= 14 weeks fetus [id number] IMPRESSION: 1. No intrauterine gestation or ectopic identified. 2. Nonspecific subtle focus of slightly increased echogenicity suggested along the posterior cervix wall. Further evaluation with contrast enhanced pelvic MRI should be considered.
[2023-05-21 22:17] LABS: Urine Color Yellow (Yellow)
[2023-05-21 22:18] LABS: Add Urine Microscopic? YES; Bacteria Urine 1+ /hpf; Bilirubin Urine Neg (Negative); Blood Urine 3+ (Negative); Glucose Urine UA Norm (Normal); Ketones Urine Negative (Negative); Leukocyte Esterase Urine Negative (Negative); Mucus Urine 3+ /hpf; Nitrate Urine Negative (Negative); Protein Urine Neg (Negative); Specific Gravity, Urine 1.025 (1.005-1.030); Squamous Epithelial Cell Urine 0-4 /hpf (0-5); Urine Appearance Clear (CLEAR); Urobilinogen Urine 1 mg/dL (Negative); WBC Urine 0-4 /hpf (0-5); pH Urine 6 (5-7)
[2023-05-21 22:37] LABS: Basophils % 0.4 %; Eosinophils # 0.4 10^3/uL (0.0-0.8); Eosinophils % 4.1 %; Hematocrit 41.4 % (36-47); Lymphocytes # 3.8 10^3/uL (0.8-4.8); Lymphocytes % 40.2 %; Mean Corpuscular HGB Conc 32.1 g/dL (30-55); Mean Corpuscular Hemoglobin 29.6 pg (27-33); Mean Corpuscular Volume 92.2 fl (85-98); Mean Platelet Volume 9.3 fL (7.4-10.4); Monocytes # 0.7 10^3/uL (0.2-0.9); Monocytes % 7.8 %; Neutrophils # 4.46 10^3/uL (1.8-7.7); Neutrophils % 47.2 %; Nucleated Red Blood Cells % 0 %; Platelet Count 470 10^3/cmm (157-399); Red Blood Count 4.49 10^6/uL (3.85-5.65); White Blood Count 9.47 10^3/uL (3.29-11.43)
[2023-05-21 22:46] LABS: HCG, Serum Qual Positive (Negative)
[2023-05-21 22:53] LABS: Alanine Aminotransferase 66 U/L (0-33); Albumin Level 4.5 g/dL (3.5-5.2); Alkaline Phosphatase 66 U/L (35-105); Aspartate Amino Transferase 30 U/L (0-32); Blood Urea Nitrogen 15 mg/dL (6-20); Calcium 9.4 mg/dL (8.5-10.5); Carbon Dioxide 27 mmol/L (22-29); Chloride 105 mmol/L (98-107); Creatinine Clr Calc Pharmacy 140.4135; Globulin 3.2 g/dL (1.3-4.6); Glomerular Filtration Rate 119.9 mL/min (90-130); Glucose 88 mg/dL (65-115); Lipase 36 U/L (13-60); Osmolality Calculated 290 mOsm/kg (285-295); Sodium 140 mmol/L (136-145); Total Bilirubin 0.2 mg/dL (0.15-1.2); Total Protein 7.7 g/dL (6.6-8.7)
[2023-05-21 23:08] LABS: Partial Thromboplastin Time 22.8 SECONDS (23.9-36.7)
[2023-05-22 00:06] LABS: HCG Quantitative 26.13 mIU/mL
--- NOTE | 2023-05-22 00:46 | ED_ITS ---
HPI - Female Genitourinary 2 General: Chief complaint: Urogenital-Female Stated complaint: abd pain , vaginal bleeding , preg Time Seen by Provider: 05/21/23 21:42 History of Present Illness: 28-year-old female who is at least a . She does not know how she has, but does note that she had a positive test at home. She presents with abdominal cramping, and vaginal bleeding that started yesterday. She passed quite a few clots, and what she believes was some tissue yesterday. She is continued to bleed today, but it has slowed down significantly. No fever. No other discharge. Associated symptoms: Reports abdominal pain and nausea Date of Last Menstrual Period: 04/13/23 Review of Systems 2 Const: Reports: fever(s) and chills Card: Reports: chest pain Resp: Reports: dyspnea GI: Reports: abdominal pain, nausea and vomiting : Reports: flank pain PFSH ED 2 PFSH: Medical History Genital herpes STD (female) Social History Smoking and tobacco/nicotine status: current every day tobacco/nicotine user Female Reproductive History: Date of last menstrual period: 04/13/23 Physical Exam 2 Const: COMMON NORMALS: no acute distress GENERAL APPEARANCE: cooperative; not ill appearing and not frail appearing HENMT: COMMON NORMALS: normocephalic, atraumatic and Normal external nose present HEAD & SCALP: normocephalic and atraumatic FACE & SINUS: normal facial exam and face symmetric NOSE: Normal external nose present Eye: COMMON NORMALS: Equal, round and reactive pupils present and EOMs intact bilaterally PUPIL: Yes Equal, round and reactive pupils present Neck/C-Spine: GENERAL: Yes trachea midline Chest: CHEST: Yes Symmetrical chest wall rise Resp: COMMON NORMALS: normal respiratory effort, No retractions, No use of accessory muscles and clear to auscultation bilaterally AUSCULTATION: clear to auscultation bilaterally Cardio: COMMON NORMALS: regular rate and regular rhythm RATE: regular rate RHYTHM: regular rhythm GI: COMMON NORMALS: Normal to inspection, nondistended, normoactive bowel sounds present Extremity: COMMON NORMALS: no pedal edema Neuro: TAVARES COMA SCALE: document GCS findings [place] coma scale eye opening: Spontaneous [place] coma scale verbal response: Orientated [place] coma scale motor response: Obey commands [place] coma scale total score: 15 S ENSORY EXAM: Yes extremities (intact) Psych: COMMON NORMALS: speech normal SPEECH: Yes normal speech Skin: COMMON NORMALS: no rashes or lesions noted GENERAL SKIN EXAM: no rashes or lesions noted Course 2 Vital Signs: Vital signs: Vital Signs Temperature 98.7 F 05/21/23 21:28 Pulse Rate 104 H 05/21/23 21:28 Respiratory Rate 18 05/21/23 21:28 Blood Pressure 121/77 05/21/23 21:28 Pulse Oximetry 98 05/21/23 21:28 Oxygen Delivery Me thod Room Air 05/21/23 21:28 MDM - Female Medical Decision Making 28-year-old female with pelvic cramping and vaginal bleeding and possible passage of tissue. Her beta hCG is only 26. Ultrasound shows no intrauterine gestation or ectopic . She will need repeat hCG testing in a few days, to ensure that it returns to 0. To return for any worsening symptoms briskly bleeding, etc. Lab Data 05/21/23 22:22 05/21/23 22:22 Radiology Impressions Ultrasound 05/21/23 21:42 IMPRESSION: 1. No intrauterine gestation or ectopic identified. 2. Nonspecific subtle focus of slightly increased echogenicity suggested along the posterior cervix wall. Further evaluation with contrast enhanced pelvic MRI should be considered. Laboratory Results WBC 9.47 10^3/uL (3.29-11.43) 05/21/23 22:22 RBC 4.49 10^6/uL (3.85-5.65) 05/21/23 22:22 Hgb 13.30 g/dL (11.27-16.99) 05/21/23 22:22 Hct 41.4 % (36-47) 05/21/23 22:22 MCV 92.2 fl (85-98) 05/21/23 22:22 MCH 29.6 pg (27-33) 05/21/23 22:22 MCHC 32.1 g/dL (30-55) 05/21/23 22:22 RDW 13.0 % (12.1-15.1) 05/21/23 22:22 Plt Count 470 10^3/cmm (157-399) H 05/21/23 22:22 MPV 9.3 fL (7.4-10.4) 05/21/23 22: Neut % (Auto) 47.2 % 05/21/23 22: Lymph % (Auto) 40.2 % 05/21/23 22: [place] % (Auto) 7.8 % 05/21/23 22:22 Eos % (Auto) 4.1 % 05/21/23 22: Baso % (Auto) 0.4 % 05/21/23 22: Neut # (Auto) 4.46 10^3/uL (1.8-7.7) 05/21/23: Lymph # (Auto) 3.8 10^3/uL (0.8-4.8) 05/21/23: [place] # (Auto) 0.7 10^3/uL (0.2-0.9) 05/21/23 22: Eos # (Auto) 0.4 10^3/uL (0.0-0.8) 05/21/23 22: Baso # (Auto) 0.0 10^3/uL (0.0-0.1) 05/21/23 22: Nucleated RBC % (auto) 0 % 05/21/23: Nucleated RBCs # 0.0 /100WBC 05/21/23 22: PT 12.40 SECONDS (12.1-14.9) 05/21/23 22: INR 0.90 (0.8-1.2) 05/21/23 22: APTT 22.8 SECONDS (23.9-36.7) L 05/21/23 22:22 Sodium 140 mmol/L (136-145) 05/21/23 22:22 Potassium 4.0 mmol/L (3.5-5.1) 05/21/23 22: Chloride 105 mmol/L (98-107) 05/21/23 22: Carbon Dioxide 27 mmol/L (22-29) 05/21/23 22:22 Anion Gap 12.0 (5-19) 05/21/23 22:22 BUN 15 mg/dL (6-20) 05/21/23 22:22 Creatinine 0.6 mg/dL (0.5-0.9) 05/21/23 22:22 GFR Calculation 119.9 mL/min (90-130) 05/21/23 22:22 Glucose 88 mg/dL (65-115) 05/21/23 22:22 Calculated Osmolality 290 mOsm/kg (285-295) 05/21/23 22:22 Calcium 9.4 mg/dL (8.5-10.5) 05/21/23 22:22 Total Bilirubin 0.2 mg/dL (0.15-1.2) 05/21/23 22:22 AST 30 U/L (0-32) 05/21/23 22:22 ALT 66 U/L (0-33) H 05/21/23 22:22 Alkaline Phosphatase 66 U/L (35-105) 05/21/23 22:22 Total Protein 7.7 g/dL (6.6-8.7) 05/21/23 22: Albumin 4.5 g/dL (3.5-5.2) 05/21/23 22: Globulin 3.2 g/dL (1.3-4.6) 05/21/23 22: Lipase 36 U/L (13-60) 05/21/23 22:22 HCG, Qual Positive (Negative) H 05/21/23 22:22 Ser , Semi-Qnt 26.13 mIU/mL 05/21/23 22:22 Urine Color Yellow (Yellow) 05/21/23 22:05 Urine Appearance Clear (CLEAR) 05/21/23 22:05 Urine pH 6 (5-7) 05/21/23 22:05 Ur Specific [place] 1.025 (1.005-1.030) 05/21/23 22:05 Urine Protein Neg (Negative) 05/21/23 22:05 Urine Glucose (UA) Norm (Normal) 05/21/23 22:05 Urine Ketones Negative (Negative) 05/21/23 22:05 Urine Blood 3+ (Negative) H 05/21/23 22:05 Urine Nitrate Negative (Negative) 05/21/23 22:05 Urine Bilirubin Neg (Negative) 05/21/23 22:05 Urine Urobilinogen 1 mg/dL (Negative) H 05/21/23 22:05 Ur Leukocyte Esterase Negative (Negative) 05/21/23 22:05 Urine RBC 5-10 /hpf (0-2) H 05/21/23 22:05 Urine WBC 0-4 /hpf (0-5) H 05/21/23 22:05 Ur Squamous Epith Cells 0-4 /hpf (0-5) H 05/21/23 22:05 Amorphous Sediment Not Reportable 05/21/23 22:05 Urine Bacteria 1+ /hpf (NONE) H 05/21/23 22:05 Urine Mucus 3+ /hpf 05/21/23 22:05 Blood Type B Positive 05/21/23 22:22 Rho(D) Type Rh positive 05/21/23 22:22 All radiology interpretation(s) finalized by discharge Discharge Plan Discharge Patient Disposition: Home Clinical Impression: , missed Condition: Stable Prescriptions: No Action ciprofloxacin HCl 500 mg tablet 500 mg PO BID Qty: 10 0RF ketorolac 10 mg tablet 10 mg PO TID PRN (Reason: pain) Qty: 10 0RF Discharge Orders: Discharge ED (Routine); Ordered 05/22/23 Ordered By: Ricardo Bush Referrals: Skinny Galarza DO [Primary Care Provider] - Yelena Pierce DO [Physician] - 1-3 days Discharge Activity: Oxygen as instructed Patient Instructions: Miscarriage (ED), Opioid Safety, Pain Management Activity Restrictions/Additional Instructions: Monitor your bleeding closely. Return for excessive bleeding, soaking 1 pad an hour for more than 3 hours. Return for fever, worsening pain, other concerning symptoms. Call the women's health clinic on Tuesday morning. The numbers listed above. Let them know you were seen here with a low quantitative test, and no noted in the uterus on ultrasound. Let them know you were told to have a repeated quantitative test in a few days. 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
== END 2023-05-22 01:20 | disposition home or self-care (01) ==
PROVIDERS: Emergency Provider Emergency Medicine; PCP Electrodiagnostic Medicine
DX: O02.1 Missed abortion (principal); O99.330 Smoking (tobacco) complicating pregnancy, unspecified trimester; Z3A.00 Weeks of gestation of pregnancy not specified
CPT/HCPCS: 36415; 76801; 80053; 81001; 83690; 84702; 84703; 85025; 85610; 85730; 86900; 99284

== ENCOUNTER 2023-07-03 19:29 | Emergency (ER) | payer MEDICAID, SELFPAY ==
[2023-07-03 19:34] VITALS: BP 135/77; PULSE 111; RESP 17; TEMP 36.9; O2SAT 99; BMI 34.9
--- NOTE | 2023-07-03 20:11 | W.ED.SKABFB ---
HPI - Skin/Abscess/Foreign Bdy General: Chief complaint: Skin/Abscess/Foreign Body Stated complaint: Rt Foot Ingrown ToeNail Time Seen by Provider: 07/03/23 20:08 History of Present Illness: 28-year-old female comes in today with complaints of right foot ingrown great nail. Patient been trying to deal with the nail at home but continues to have significant drainage from the wound starting 2 to 3 days ago. Review of Systems General: Reports: 10 or more systems reviewed and unremarkable except in HPI and below PFSH ED PFSH: Medical History (Updated 07/03/23 @ 20:13 by RICCARDO Reynoso) , missed STD (female) Genital herpes Family History (Updated 05/24/23 @ 10:05 by Varsha Hutchinson RN) Grandmother Heart disease Hyperlipidemia Hypertension Thyroid disease Diabetes Grandfather Hyperlipidemia Mother Hyperlipidemia Hypertension Diabetes Denies family history of Colon cancer Ovarian cancer Breast cancer Uterine cancer Stroke Social History Smoking and tobacco/nicotine status: current every day tobacco/nicotine user Physical Exam Const: COMMON NORMALS: alert HENMT: COMMON NORMALS: normocephalic HEAD & SCALP: normocephalic Neck/C-Spine: COMMON NORMALS: full ROM Resp: COMMON NORMALS: normal respiratory effort Cardio: COMMON NORMALS: regular rate RATE: regular rate Back/Pelvis: COMMON NORMALS: thoracic and lumbar spine normal to inspection Extremity: COMMON NORMALS: full ROM Neuro: SENSORIUM/ORIENTATION: Yes alert Skin: NARRATIVE SKIN EXAM: Granulation of the tissue noted to the great toe on the right foot. Patient has some purulent drainage from the edge of the toenail. Course Vital Signs: Vital signs: Vital Signs Temperature 98.4 F 07/03/23 19:34 Pulse Rate 111 H 07/03/23 19:34 Respiratory Rate 17 07/03/23 19:34 Blood Pressure 135/77 07/03/23 19:34 Pulse Oximetry 99 07/03/23 19:34 Oxygen Delivery Me thod Room Air 07/03/23 19:34 MDM - Skin/Abscess/Foreign Bdy Medicial Decision Making Patient has ingrown nail to the right foot first digit. Patient be placed on clindamycin antibiotic and set up a referral to podiatry for nail removal. There is significant granulation along the nail which may complicate removal of the nail in the ER. Clindamycin was sent to the pharmacy. Patient was recommended to use acetaminophen or ibuprofen for pain and discomfort. No radiology studies performed this visit Discharge Plan Discharge Patient Disposition: Home Clinical Impression: Paronychia due to ingrown nail Condition: Stable Prescriptions: New clindamycin HCl 300 mg capsule 300 mg PO TID 7 Days Qty: 21 0RF No Action diphenhydramine HCl [Allergy (diphenhydramine)] 25 mg capsule 25 mg PO TID PRN Discharge Orders: Discharge ED (Routine); Ordered 07/03/23 Ordered By: Raheem Katz Referrals: Skinny Galarza DO [Primary Care Provider] - Patient Instructions: Opioid Safety, Pain Management Stand Alone Forms: Work/School Release Coding Level of Care Code ED Promotions Coordinator for [place]
[2023-07-03] MEDS: clindamycin 150 mg Capsule 300 MG PO (20:19)
--- NOTE | 2023-07-04 10:55 | DCPLANNER ---
message sent to podiatry for an er f/u
== END 2023-07-03 20:31 | disposition home or self-care (01) ==
PROVIDERS: Emergency Provider Nurse Practitioner Family; PCP Electrodiagnostic Medicine
DX: L03.031 Cellulitis of right toe (principal); L60.0 Ingrowing nail; Z72.0 Tobacco use
CPT/HCPCS: 99283

== ENCOUNTER 2023-08-23 03:24 | Emergency (ER) | payer MEDICAID, SELFPAY ==
--- NOTE | 2023-08-23 03:29 | ECG_ITS ---
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 Measurements Intervals [place] Rate: 99 P: 49 MS: 127 QRS: 45 QRSD: 75 T: 43 QT: 301 QTc: 386 Interpretive Statements SINUS RHYTHM No previous ECG available for comparison Electronically Signed On 08-23-2023 21:25:23 CDT by Verona Rai M.D. [id number]
[2023-08-23 03:30] VITALS: BP 116/77; PULSE 108; RESP 20; TEMP 36.7; O2SAT 99; BMI 31.1
--- NOTE | 2023-08-23 03:35 | XRR_ITS ---
PROCEDURE INFORMATION: Exam: XR Chest Exam date and time: 08/23/2023 3:44 AM Age: 28 years old Clinical indication: Other: Chest tightness TECHNIQUE: Imaging protocol: Radiologic exam of the chest. Views: 1 view. COMPARISON: CR XR KUB [id number] 09/07/2022 2:07 AM FINDINGS: Lungs: Unremarkable. No consolidation. Pleural spaces: Unremarkable. No pleural effusion. No pneumothorax. Heart/Mediastinum: Unremarkable. No cardiomegaly. Bones/joints: Unremarkable. XR/XR chest 1V portable [id number] IMPRESSION: No acute findings.
--- NOTE | 2023-08-23 04:56 | ED_ITS ---
HPI - Allergic Reaction 2 General: Chief complaint: Allergic Reaction Stated complaint: chest is tight Time Seen by Provider: 08/23/23 04:44 History of Present Illness: HPI narrative: Patient presents to the ER with complaints of possible allergic reaction to take clindamycin 3 days ago for UTI. Patient is since then taking Benadryl and Azo. Patient says her chest got tight to her throat got tight and she found it hard to breathe hard to swallow. Patient is alert nontoxic in nonacute distress here in ER. Review of Systems 2 General: Reports: 10 or more systems reviewed and unremarkable except in HPI and below PFSH ED 2 PFSH: Medical History , missed STD (female) Genital herpes Family History Grandmother Heart disease Hyperlipidemia Hypertension Thyroid disease Diabetes Grandfather Hyperlipidemia Mother Hyperlipidemia Hypertension Diabetes Denies family history of Colon cancer Ovarian cancer Breast cancer Uterine cancer Stroke Social History Smoking and tobacco/nicotine status: current every day tobacco/nicotine user Physical Exam 2 Const: COMMON NORMALS: no acute distress, average body habitus, patient oriented x3, no limitations, healthy appearing, alert and well nourished HENMT: COMMON NORMALS: normocephalic, atraumatic, hearing grossly normal bilaterally, external ears normal, Normal external nose present and moist oral mucous membranes HEAD & SCALP: normocephalic and atraumatic NOSE: Normal external nose present EXTERNAL EAR: Yes external ears normal Neck/C-Spine: COMMON NORMALS: no JVD Chest: COMMONS NORMALS: normal inspection of the chest and normal palpation of entire chest wall Resp: COMMON NORMALS: normal respiratory effort, No retractions, No use of accessory muscles and clear to auscultation bilaterally AUSCULTATION: clear to auscultation bilaterally Cardio: COMMON NORMALS: no JVD, regular rate, regular rhythm, S1 normal heart sound present, S2 normal heart sound present, No gallops present (Cardio), No clicks present (Cardio), No murmurs present (Cardio) and No rub (Cardio) R ATE: regular rate RHYTHM: regular rhythm HEART SOUNDS: S1 normal heart sound present and S2 normal heart sound present GI: COMMON NORMALS: Normal to inspection, nondistended, normoactive bowel sounds present, Soft to palpation, non-tender, No hepatosplenomegaly present and no masses PALPATION: Yes Soft to palpation and Yes No hepatosplenomegaly present Neuro: COMMON NORMALS: patient oriented x3 SENSORIUM/ORIENTATION: Yes alert Course 2 Vital Signs: Vital signs: Vital Signs Temperature 98.1 F 08/23/23 03:30 Pulse Rate 91 08/23/23 05:10 Respiratory Rate 16 08/23/23 05:10 Blood Pressure 107/72 08/23/23 05:10 Pulse Oximetry 99 08/23/23 05:10 MDM - Allergic Reaction Medical Decision Making Patient lab work included CBC CMP troponin urinalysis EKG all which was essentially negative except 2+ blood in her urine. Patient may very well of had a reaction to the clindamycin that she took from a friend her urinary symptoms. Patient has been off it for 2 days. Patient be discharged from the ER today and is to follow-up with her PCP. Differential Diagnosis Likely allergic reaction and adverse reaction to drug Medical Records I reviewed the patient's medical records. Lab Data I reviewed the patient's lab results. 08/23/23 05:00 08/23/23 05:00 Laboratory Results WBC 9.76 10^3/uL (3.29-11.43) 08/23/23 05:00 RBC 4.39 10^6/uL (3.85-5.65) 08/23/23 05:00 Hgb 13.10 g/dL (11.27-16.99) 08/23/23 05:00 Hct 40.2 % (36-47) 08/23/23 05:00 MCV 91.6 fl (85-98) 08/23/23 05:00 MCH 29.8 pg (27-33) 08/23/23 05:00 MCHC 32.6 g/dL (30-55) 08/23/23 05:00 RDW 12.8 % (12.1-15.1) 08/23/23 05:00 Plt Count 400 10^3/cmm (157-399) H 08/23/23 05:00 MPV 9.3 fL (7.4-10.4) 08/23/23 05:00 Neut % (Auto) 54.5 % 08/23/23 05:00 Lymph % (Auto) 33.2 % 08/23/23 05:00 [place] % (Auto) 8.9 % 08/23/23 05:00 Eos % (Auto) 2.9 % 08/23/23 05:00 Baso % (Auto) 0.3 % 08/23/23 05:00 Neut # (Auto) 5.32 10^3/uL (1.8-7.7) 08/23/23 05:00 Lymph # (Auto) 3.2 10^3/uL (0.8-4.8) 08/23/23 05:00 [place] # (Auto) 0.9 10^3/uL (0.2-0.9) 08/23/23 05:00 Eos # (Auto) 0.3 10^3/uL (0.0-0.8) 08/23/23 05:00 Baso # (Auto) 0.0 10^3/uL (0.0-0.1) 08/23/23 05:00 Nucleated RBC % (auto) 0 % 08/23/23 05:00 Nucleated RBCs # 0.0 /100WBC 08/23/23 05:00 Sodium 139 mmol/L (136-145) 08/23/23 05:00 Potassium 4.3 mmol/L (3.5-5.1) 08/23/23 05:00 Chloride 105 mmol/L (98-107) 08/23/23 05:00 Carbon Dioxide 20 mmol/L (22-29) L 08/23/23 05:00 Anion Gap 18.3 (5-19) 08/23/23 05:00 BUN 12 mg/dL (6-20) 08/23/23 05:00 Creatinine 0.5 mg/dL (0.5-0.9) 08/23/23 05:00 GFR Calculation 148.0 mL/min (90-130) H 08/23/23 05:00 Glucose 66 mg/dL (65-115) 08/23/23 05:00 Calculated Osmolality 286 mOsm/kg (285-295) 08/23/23 05:00 Calcium 9.2 mg/dL (8.5-10.5) 08/23/23 05:00 Total Bilirubin 0.2 mg/dL (0.15-1.2) 08/23/23 05:00 AST 26 U/L (0-32) 08/23/23 05:00 ALT 47 U/L (0-33) H 08/23/23 05:00 Alkaline Phosphatase 72 U/L (35-105) 08/23/23 05:00 Troponin T Baseline < 6 ng/L (0-10) 08/23/23 05:00 Total Protein 7.5 g/dL (6.6-8.7) 08/23/23 05:00 Albumin 4.6 g/dL (3.5-5.2) 08/23/23 05:00 Globulin 2.9 g/dL (1.3-4.6) 08/23/23 05:00 Urine Color Yellow (Yellow) 08/23/23 05:29 Urine Appearance Slightly cloudy (CLEAR) 08/23/23 05:29 Urine pH 7 (5-7) 08/23/23 05:29 Ur Specific [place] 1.015 (1.005-1.030) 08/23/23 05:29 Urine Protein Neg (Negative) 08/23/23 05:29 Urine Glucose (UA) Norm (Normal) 08/23/23 05:29 Urine Ketones Negative (Negative) 08/23/23 05:29 Urine Blood 2+ (Negative) H 08/23/23 05:29 Urine Nitrate Negative (Negative) 08/23/23 05:29 Urine Bilirubin Neg (Negative) 08/23/23 05:29 Urine Urobilinogen Neg mg/dL (Negative) 08/23/23 05:29 Ur Leukocyte Esterase Negative (Negative) 08/23/23 05:29 Urine RBC 0-4 /hpf (0-2) H 08/23/23 05:29 Urine WBC None /hpf (0-5) 08/23/23 05:29 Ur Squamous Epith Cells None /hpf (0-5) 08/23/23 05:29 Amorphous Sediment 2+ /hpf 08/23/23 05:29 Urine Bacteria Trace /hpf (NONE) 08/23/23 05:29 All radiology interpretation(s) finalized by discharge Discharge Plan Discharge Patient Disposition: Home Clinical Impression: Adverse reaction to drug Qualifiers: Encounter type: initial encounter Qualified Code(s): T50.905A - Adverse effect of unspecified drugs, medicaments and biological substances, initial encounter Condition: Stable Prescriptions: No Action diphenhydramine HCl [Allergy (diphenhydramine)] 25 mg capsule 25 mg PO TID PRN Discharge Orders: Discharge ED (Routine); Ordered 08/23/23 Ordered By: Solo Healy Referrals: Skinny Galarza DO [Primary Care Provider] - 1 week Patient Instructions: Adverse Drug Reaction (ED) Activity Restrictions/Additional Instructions: Your evaluation in the ER included lab work did not reveal any acute cause of your symptoms. It may be that you did have a reaction to your clindamycin. I would suggest you stay away from clindamycin. Your urine did not show any signs of infection. Please follow-up with your family proximal physician in the next 7 days for further evaluation and treatment. Coding Level of Care Code ED Supervisor General for [place]
[2023-08-23 05:05] LABS: Basophils % 0.3 %; Eosinophils # 0.3 10^3/uL (0.0-0.8); Eosinophils % 2.9 %; Hematocrit 40.2 % (36-47); Lymphocytes # 3.2 10^3/uL (0.8-4.8); Lymphocytes % 33.2 %; Mean Corpuscular HGB Conc 32.6 g/dL (30-55); Mean Corpuscular Hemoglobin 29.8 pg (27-33); Mean Corpuscular Volume 91.6 fl (85-98); Mean Platelet Volume 9.3 fL (7.4-10.4); Monocytes # 0.9 10^3/uL (0.2-0.9); Monocytes % 8.9 %; Neutrophils # 5.32 10^3/uL (1.8-7.7); Neutrophils % 54.5 %; Nucleated Red Blood Cells % 0 %; Platelet Count 400 10^3/cmm (157-399); Red Blood Count 4.39 10^6/uL (3.85-5.65); Red Cell Distribution Width 12.8 % (12.1-15.1); White Blood Count 9.76 10^3/uL (3.29-11.43)
[2023-08-23 05:10] VITALS: BP 107/72; PULSE 91; RESP 16; O2SAT 99
[2023-08-23 05:23] LABS: Troponin(5th) Baseline < 6 ng/L (0-10)
[2023-08-23 05:35] LABS: Alanine Aminotransferase 47 U/L (0-33); Albumin Level 4.6 g/dL (3.5-5.2); Alkaline Phosphatase 72 U/L (35-105); Aspartate Amino Transferase 26 U/L (0-32); Blood Urea Nitrogen 12 mg/dL (6-20); Calcium 9.2 mg/dL (8.5-10.5); Carbon Dioxide 20 mmol/L (22-29); Chloride 105 mmol/L (98-107); Creatinine Clr Calc Pharmacy 156.3939; Globulin 2.9 g/dL (1.3-4.6); Glucose 66 mg/dL (65-115); Osmolality Calculated 286 mOsm/kg (285-295); Sodium 139 mmol/L (136-145); Total Bilirubin 0.2 mg/dL (0.15-1.2); Total Protein 7.5 g/dL (6.6-8.7)
[2023-08-23 05:37] LABS: Anion Gap 18.3 (5-19); Potassium 4.3 mmol/L (3.5-5.1)
[2023-08-23 05:44] LABS: Urine Appearance Slightly Cloudy (CLEAR); Urine Color Yellow (Yellow); pH Urine 7 (5-7)
[2023-08-23 05:45] LABS: Add Urine Culture? No; Add Urine Microscopic? YES; Amorphous Sediment Urine 2+ /hpf; Bacteria Urine TRACE /hpf; Bilirubin Urine Neg (Negative); Blood Urine 2+ (Negative); Glucose Urine UA Norm (Normal); Ketones Urine Negative (Negative); Leukocyte Esterase Urine Negative (Negative); Nitrate Urine Negative (Negative); Protein Urine Neg (Negative); RBC Urine 0-4 /hpf (0-2); Specific Gravity, Urine 1.015 (1.005-1.030); Urobilinogen Urine Neg (Negative)
[2023-08-23 05:53] VITALS: BP 111/76; PULSE 87; RESP 16; O2SAT 99
== END 2023-08-23 05:53 | disposition home or self-care (01) ==
PROVIDERS: Emergency Provider Emergency Medicine; PCP Electrodiagnostic Medicine
DX: T88.7XXA Unspecified adverse effect of drug or medicament, initial encounter (principal); T36.8X5A Adverse effect of other systemic antibiotics, initial encounter; Z72.0 Tobacco use
CPT/HCPCS: 71045; 80053; 81001; 84484; 85025; 93005; 99285

== ENCOUNTER 2023-09-18 01:33 | Emergency (ER) | payer MEDICAID, SELFPAY ==
[2023-09-18 01:36] VITALS: BP 129/92; PULSE 115; RESP 20; TEMP 36.8; O2SAT 100; BMI 34.0
[2023-09-18 01:39] VITALS: BP 129/92
--- NOTE | 2023-09-18 02:06 | ED_ITS ---
HPI - Female Genitourinary General: Chief complaint: Urogenital-Female Stated complaint: Vaginal Pain Time Seen by Provider: 09/18/23 01:47 History of Present Illness: Healthy 28-year-old female presenting with vaginal pain, itching, and pain during and after intercourse for the past 2 to 3 days. No fever. No vaginal discharge. No odors. No vaginal bleeding. She does not believe she is . Associated symptoms: Deny vaginal bleeding Date of Last Menstrual Period: 08/22/23 Related Data Home Medications Medication Instructions Recorded Confirmed diphenhydramine HCl 25 mg capsule 25 mg PO TID PRN 05/24/23 07/08/23 (Allergy (diphenhydramine)) Previous Rx's Medication Instructions Recorded metronidazole 500 mg tablet 500 mg PO TID #21 tabs 09/18/23 Allergies Allergy/AdvReac Type Severity Reaction Status Date / Time Sulfa (Sulfonamide Allergy ALGY-Rash Verified 07/08/23 07:56 Antibiotics) [facility] ED PFSH: Medical History , missed STD (female) Genital herpes Family History Grandmother Heart disease Hyperlipidemia Hypertension Thyroid disease Diabetes Grandfather Hyperlipidemia Mother Hyperlipidemia Hypertension Diabetes Denies family history of Colon cancer Ovarian cancer Breast cancer Uterine cancer Stroke Social History Smoking and tobacco/nicotine status: current every day tobacco/nicotine user Female Reproductive History: Date of last menstrual period: 08/22/23 Physical Exam Const: COMMON NORMALS: no acute distress GENERAL APPEARANCE: cooperative; not ill appearing and not frail appearing HENMT: COMMON NORMALS: normocephalic, atraumatic and Normal external nose present HEAD & SCALP: normocephalic and atraumatic FACE & SINUS: normal facial exam and face symmetric NOSE: Normal external nose present Eye: COMMON NORMALS: Equal, round and reactive pupils present and EOMs intact bilaterally PUPIL: Yes Equal, round and reactive pupils present Neck/C-Spine: GENERAL: Yes trachea midline Chest: CHEST: Yes Symmetrical chest wall rise Resp: COMMON NORMALS: normal respiratory effort, No retractions and No use of accessory muscles Cardio: COMMON NORMALS: regular rate and regular rhythm RATE: regular rate RHYTHM: regular rhythm GI: COMMON NORMALS: Normal to inspection, nondistended, normoactive bowel sounds present : EXTERNAL FEMALE EXAM: Yes normal appearance of the urethra SPECULUM EXAM - VAGINA: No erythematous, No laceration, No lesion, No vaginal bleeding and No tissue present in vagina SPECULUM EXAM - CERVIX: Yes Cervical os closed, No Cervical mass present and No Cervical tenderness present BIMANUAL EXAM - VAGINA & UTERUS: No Cervical tenderness present OB/EXTERNAL & SPECULUM: no tissue noted in vagina and vaginal bleeding Extremity: COMMON NORMALS: no pedal edema Neuro: TAVARES COMA SCALE: document GCS findings Tavares coma scale eye o pening: Spontaneous [place] coma scale verbal response: Orientated [place] coma scale motor response: Obey commands [place] coma scale total score: 15 SENSORY EXAM: Yes extremities (intact) Psych: COMMON NORMALS: speech normal SPEECH: Yes normal speech Skin: COMMON NORMALS: no rashes or lesions noted GENERAL SKIN EXAM: no rashes or lesions noted Course Vital Signs: Vital signs: Vital Signs Temperature 98.3 F 09/18/23 01:36 Pulse Rate 98 09/18/23 03:19 Respiratory Rate 20 H 09/18/23 01:36 Blood Pressure 134/90 09/18/23 03:19 Pulse Oximetry 100 09/18/23 01:36 MDM - Female Medical Decision Making Examination on pelvic exam consistent with bacterial vaginosis. She has clue cells. No trichomonas, no yeast. She is treated empirically for chlamydia gonorrhea as well. She will be discharged. Return for problems. Lab Data Laboratory Results HCG, Qual Negative (Negative) 09/18/23 01:48 Urine Color Yellow (Yellow) 09/18/23 01:48 Urine Appearance Clear (CLEAR) 09/18/23 01:48 Urine pH 7.0 (5-7) 09/18/23 01:48 Ur Specific [place] 1.021 (1.005-1.030) 09/18/23 01:48 Urine Protein Negative (Negative) 09/18/23 01:48 Urine Glucose (UA) Negative (Normal) 09/18/23 01:48 Urine Ketones Negative (Negative) 09/18/23 01:48 Urine Blood Negative (Negative) 09/18/23 01:48 Urine Nitrate Negative (Negative) 09/18/23 01:48 Urine Bilirubin Negative (Negative) 09/18/23 01:48 Urine Urobilinogen 1.0 mg/dL (Negative) 09/18/23 01:48 Ur Leukocyte Esterase Negative (Negative) 09/18/23 01:48 Urine RBC 0-2 /hpf (0-2) 09/18/23 01:48 Urine WBC 0-5 /hpf (0-5) 09/18/23 01:48 Ur Squamous Epith Cells 0-5 /hpf (0-5) 09/18/23 01:48 Amorphous Sediment Not Reportable 09/18/23 01:48 Urine Bacteria None seen /hpf (NONE) 09/18/23 01:48 Hyaline Casts 1.21 /lpf 09/18/23 01:48 All radiology interpretation(s) finalized by discharge Discharge Plan Discharge Patient Disposition: Home Clinical Impression: Bacterial vaginosis Condition: Stable Prescriptions: New metronidazole 500 mg tablet 500 mg PO TID Qty: 21 0RF No Action diphenhydramine HCl [Allergy (diphenhydramine)] 25 mg capsule 25 mg PO TID PRN Discharge Orders: Discharge ED (Routine); Ordered 09/18/23 Ordered By: Ricardo Bush Referrals: Skinny Galarza DO [Primary Care Provider] - 1-3 days Patient Instructions: Bacterial Vaginosis (ED), Opioid Safety, Pain Management Activity Restrictions/Additional Instructions: Medication as directed. Return for fever, vaginal bleeding, other concerning symptoms. See your doctor next week. You may call for the results of your remaining tests at any point. Coding Level of Care Code ED Clinical Quality Assurance Associate for [facility]
[2023-09-18 02:20] LABS: HCG Qualitative Urine. Negative (Negative)
[2023-09-18 02:26] LABS: Charge for UA Resulting for Rev
[2023-09-18 02:27] LABS: Bilirubin Urine Negative (Negative); Blood Urine Negative (Negative); Glucose Urine UA Negative (Normal); Ketones Urine Negative (Negative); Leukocyte Esterase Urine Negative (Negative); Nitrate Urine Negative (Negative); Protein Urine Negative (Negative); Specific Gravity, Urine 1.021 (1.005-1.030); Urine Appearance Clear (CLEAR); Urine Color Yellow (Yellow)
[2023-09-18 02:32] LABS: Bacteria Urine None Seen /hpf; Hyaline Casts Urine 1.21 /lpf; RBC Urine 0-2 /hpf (0-2); Squamous Epithelial Cell Urine 0-5 /hpf (0-5); WBC Urine 0-5 /hpf (0-5)
[2023-09-18] MEDS: cefTRIAXone 500 MG in water for injection-sterile 1 ML IM (03:06)
[2023-09-18] MEDS: azithromycin 250 mg Tablet 1000 MG PO (03:10)
[2023-09-18] MEDS: metroNIDAZOLE 500 MG Tablet 2000 MG PO (03:10)
[2023-09-18] MEDS: ondansetron 4 MG Tablet PO (03:11)
[2023-09-18 03:19] VITALS: BP 134/90; PULSE 98
[2023-09-19 15:28] LABS: Chlamydia Trachomatis RNA TMA DETECTED (NOT DETECTED); Neisseria Gonorrhoeae RNA, TMA NOT DETECTED (NOT DETECTED)
== END 2023-09-18 03:20 | disposition home or self-care (01) ==
PROVIDERS: Emergency Provider Emergency Medicine; PCP Electrodiagnostic Medicine
DX: N76.0 Acute vaginitis (principal); Z72.0 Tobacco use
CPT/HCPCS: 81003; 81015; 81025; 87210; 87491; 87591; 96372; 99284; J0696; Q0144; Q0162

== ENCOUNTER 2024-01-31 18:42 | Emergency (ER) | payer MEDICAID, SELFPAY ==
[2024-01-31 18:45] VITALS: BP 104/71; PULSE 104; RESP 16; TEMP 36.8; O2SAT 98; BMI 31.1
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
[2024-01-31] MEDS: tetanus-dipt-pertussis 0.5 mL SDV IM (19:42)
[2024-01-31 19:51] LABS: HCG, Serum Qual Negative (Negative)
[2024-01-31 20:04] VITALS: BP 126/101; PULSE 102; O2SAT 100
[2024-01-31 21:09] VITALS: BP 120/72; PULSE 89; O2SAT 100
== END 2024-01-31 21:11 | disposition home or self-care (01) ==
PROVIDERS: Emergency Provider Emergency Medicine; PCP Electrodiagnostic Medicine
DX: S09.8XXA Other specified injuries of head, initial encounter (principal); Y04.2XXA Assault by strike against or bumped into by another person, initial encounter; Z72.0 Tobacco use
CPT/HCPCS: 36415; 70450; 71045; 84703; 90471; 90715; 99284

== ENCOUNTER → 2024-05-16 11:10 | Outpatient (BNVA) | payer OTHER, SELFPAY | PROVIDERS: PCP Electrodiagnostic Medicine; Visit Provider Psychiatry & Neurology Psychiatry | DX: Z79.899 Other long term (current) drug therapy (principal) | CPT/HCPCS: 80061; 83036 ==

== ENCOUNTER 2024-09-26 01:57 | Emergency (ER) | payer SELFPAY ==
[2024-05-17 16:35] VITALS: BP 121/76; BMI 32.7
--- OUTSIDE RECORDS SUMMARY | 2024-09-26 02:03 | XMS_ITS | Clinical Summary ---
Author Organization [facility] Address [address] Cm: [place] [address] Care Team Providers Care Cnc Lathe Machine Operator Name Role Phone Unavailable Primary Care Provider Unavailabl e Allergies No known active allergies Medications No known medications Active Problems Problem Noted Date Diagnosed Date Exposure to sexually transmitted disease (STD) 1 History of syphilis 11/08/2022 Immunizations Immunization Administration Dates Next Due (M-M-R II/PRIORIX)(12 MO UP) MEASLES, MUMPS AND RUBELLA VIRUS VACCINE, 0.5 ML IM/SUBCUT 03/02/2000,10/30/1997 Dt Dtp Dtap Vaccine 03/02/2000, 8,01/27/1997,1996,1996,1996 HIB, Unspecified Formulation 10/30/1997, 1996,1996,1996 Hepatitis B Vaccine 1996,1996,1995 IPV/OPV 03/15/2001, 8,1996,1996 Social History Tobacco Use Types Packs/Day Years Used Date Smoking Tobacco: Every Day Cigarettes Smokeless Tobacco: Never Tobacco Cessation:Ready to Q uit: Not Asked; Counseling Given: Not Answered Alcohol Use Standard Drinks/Week Comments Never 0 (1 standard drink = 0.6 oz pur e alcohol) Comments Unknown Sex and Gender Information Value Date Recorded Sex Assigned at Not on file Legal Sex Female 11:31 AM PRINCIPAL IOS DEVELOPER Gender Identity Not on file Sexual Orientation Not on file Last Filed Vital Signs Vital Sign Reading Time Taken Comments Blood Pressure 117/80 11/08/2022 4:00 PM CDT Pulse 95 11/08/2022 4:00 PM CDT Temperature 36.7 C (98 F) 11/08/2022 1:47 PM CDT Respiratory Rate 16 11/08/2022 4:00 PM CDT Oxygen Saturation 99% 11/08/2022 4:00 PM CDT Inhaled Oxygen Concentration - - Weight 78 kg (172 lb) 11/08/2022 1:47 PM CDT Height 157.5 cm (5' 2 ) 11/08/2022 1:47 PM CDT Body Mass Index 31.46 11/08/2022 1:47 PM CDT Plan of Treatment Health Maintenance Due Date Last Done Comments HPV VACCINES (1 - 3-dose series) 01/24/2011 CERVICAL CANCER SCREENING 01/24/2017 HPV/Cotest (21-29) 01/24/2017 PAP SMEAR 01/24/2017 INFLUENZA VACCINE (#1) 2024 DTAP/TDAP/TD VACCINES (7 - T d or Tdap) 03/13/2031 03/13/2021, 03/02/2000, 10/30/1997, Additional history exists HEPATITIS B VACCINES Completed 1996, 1996, 1996 Insurance [id number] [id number]
--- OUTSIDE RECORDS SUMMARY | 2024-09-26 02:03 | XMS_ITS | Encounter Summary ---
Author Organization [facility] Address [address] Attn: Epic [place] [address] Care Team Providers Care Senior Firmware Engineer Name Role Phone Unavailable Primary Care Provider Unavailabl e Encounter Details Date Type Department Care Team (Late st Contact Info) Description 07/31/2001 [place] [address] [place] [address] Social History Tobacco Use Types Packs/Day Years Used Date Smoking Tobacco: Never Assessed Comments Unknown Sex and Gender Information Value Date Recorded Sex Assigned at Not on file 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
--- OUTSIDE RECORDS SUMMARY | 2024-09-26 02:03 | XMS_ITS | Encounter Summary ---
Author Organization [facility] Address [address] [place] [address] Care Team Providers Care Office Auditor Name Role Phone Unavailable Primary Care Provider Unavailabl e Encounter Details Date Type Department Care Team (Latest Contact Info) Description 11/11/1999 Outpatient Historical [facility] [address] [place] [phone] [place] [address] [address] [place] [address] Localization-related (focal) (partial) epilepsy and epileptic syndromes with complex partial seizures, without mention of intractable epilepsy (Primary Dx) Social History Tobacco Use Types Packs/Day Years Used Date Smoking Tobacco: Never Assessed Comments Unknown Sex and Gender Information Value Date Recorded Sex Assigned at Not on file 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
--- OUTSIDE RECORDS SUMMARY | 2024-09-26 02:03 | XMS_ITS | Encounter Summary ---
Author Organization [facility] Address [address] [place] [address] Care Team Providers Care Mobile Manager Name Role Phone Unavailable Primary Care Provider Unavailabl e Encounter Details Date Type Department Care Team (Latest Contact Info) Description 02/08/2001 Outpatient Historical [facility] [address] [place] [phone] [place] [address] [place] [address] PSYCHO EPI W/O MENTN INTRACTABLE (CMS/HCC) (Primary Dx) Social History Tobacco Use Types Packs/Day Years Used Date Smoking Tobacco: Never Assessed Comments Unknown Sex and Gender Information Value Date Recorded Sex Assigned at Not on file 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
--- OUTSIDE RECORDS SUMMARY | 2024-09-26 02:03 | XMS_ITS | Encounter Summary ---
Author Organization [facility] Address [address] [place] [address] Care Team Providers Care Police Reserves Commander Name Role Phone Unavailable Primary Care Provider Unavailabl e Encounter Details Date Type Department Care Team (Latest Contact Info) Description 07/31/2001 Outpatient Historical [facility]rology[facility] [address] [place] [phone] [place] [address] [address] [place] [address] PSYCHO EPI W/O MENTN INTRACTABLE (CMS/HCC) (Primary Dx) Social History Tobacco Use Types Packs/Day Years Used Date Smoking Tobacco: Never Assessed Comments Unknown Sex and Gender Information Value Date Recorded Sex Assigned at Not on file Legal Sex Female 5:27 AM DATA SERVICES DEVELOPER Gender Identity Not on file Sexual Orientation Not on file documented as of this encounter Plan of Treatment Not on file documented as of this encounter Visit Diagnoses Diagnosis Localization-related (focal) (partial) epilepsy and epileptic syndromes with complex partial seizures, without mention of intractable epilepsy- Primary documented in this encounter
--- OUTSIDE RECORDS SUMMARY | 2024-09-26 02:03 | XMS_ITS | Encounter Summary ---
Author Organization [facility] Address [address] [place] [address] Care Team Providers Care Client Delivery Specialist Name Role Phone Unavailable Primary Care Provider Unavailabl e Encounter Details Date Type Department Care Team (Latest Contact Info) Description 08/08/2000 Outpatient Historical [facility]rology[facility] [address] [place] [phone] [place] [address] [place] [address] Localization-related (focal) (partial) epilepsy and epileptic syndromes with complex partial seizures, without mention of intractable epilepsy (Primary Dx) Social History Tobacco Use Types Packs/Day Years Used Date Smoking Tobacco: Never Assessed Comments Unknown Sex and Gender Information Value Date Recorded Sex Assigned at Not on file 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
--- OUTSIDE RECORDS SUMMARY | 2024-09-26 02:03 | XMS_ITS | Encounter Summary ---
Author Organization [facility] Address [address] [place] [address] Care Team Providers Care Worm Farmer Name Role Phone Unavailable Primary Care Provider Unavailabl e Encounter Details Date Type Department Care Team (Latest Contact Info) Description 02/10/2000 Outpatient Historical [facility]rology[facility] [address] [place] [phone] [place] [address] [facility] [place] [address] Localization-related (focal) (partial) epilepsy and epileptic syndromes with complex partial seizures, without mention of intractable epilepsy (Primary Dx) Social History Tobacco Use Types Packs/Day Years Used Date Smoking Tobacco: Never Assessed Comments Unknown Sex and Gender Information Value Date Recorded Sex Assigned at Not on file Legal Sex Female 5:27 AM SHOP TECH Gender Identity Not on file Sexual Orientation Not on file documented as of this encounter Plan of Treatment Not on file documented as of this encounter Visit Diagnoses Diagnosis Localization-related (focal) (partial) epilepsy and epileptic syndromes with complex partial seizures, without mention of intractable epilepsy- Primary documented in this encounter
--- OUTSIDE RECORDS SUMMARY | 2024-09-26 02:03 | XMS_ITS | Clinical Summary ---
Author Organization [facility] Address [address] 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
--- OUTSIDE RECORDS SUMMARY | 2024-09-26 02:03 | XMS_ITS | Encounter Summary ---
Author Organization [facility] Address [address] [place] [address] Care Team Providers Care Knife Glazer Name Role Phone Unavailable Primary Care Provider Unavailabl e Encounter Details Date Type Department Care Team (Late st Contact Info) Description 08/08/2000 Outpatient [place] [address] [address] [place] [address] Unspecified epilepsy without mention of intractable epilepsy (CMS/HCC) (Primary Dx) Social History Tobacco Use Types Packs/Day Years Used Date Smoking Tobacco: Never Assessed Comments Unknown Sex and Gender Information Value Date Recorded Sex Assigned at Not on file 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
--- OUTSIDE RECORDS SUMMARY | 2024-09-26 02:03 | XMS_ITS | Encounter Summary ---
Author Organization [facility] Address [address] 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
[2024-09-26 02:18] VITALS: BP 139/71; PULSE 98; RESP 18; TEMP 36.9; O2SAT 97; BMI 32.0
--- NOTE | 2024-09-26 02:52 | W.ED.FEMALGU ---
HPI - Female Genitourinary General: Chief complaint: Urogenital-Female Stated complaint: Exposed to STD Time Seen by Provider: 09/26/24 02:47 History of Present Illness: Patient comes in with concerns for chlamydia. States that she had a sexual encounter about a week and a half ago and was informed by that person that they have chlamydia. She states she is having a little bit of increased vaginal discharge. Denies any pain or dysuria. States her last menstrual cycle was 5 weeks ago. Will check urine for STD, , infection, and reassess. Differential diagnosis: Acute chlamydia, acute trichomonas, acute gonorrhea, acute UTI, acute Associated symptoms: Reports vaginal discharge Related Data Home Medications ?Medication ?Instructions ?Recorded ?Confirmed diphenhydramine HCl 25 mg capsule 25 mg PO TID PRN 05/24/23 05/16/24 (Allergy (diphenhydramine)) Previous Rx's ?Medication ?Instructions ?Recorded metronidazole 500 mg tablet 500 mg PO BID 7 days #14 tabs 09/26/24 Allergies Allergy/AdvReac Type Severity Reaction Status Date / Time Sulfa (Sulfonamide Allergy ALGY-Rash Verified 05/16/24 12:27 Antibiotics) Review of Systems : Reports: vaginal discharge PFSH ED PFSH: Medical History (Updated 09/26/24 @ 05:29 by Rahul Mejia MD) Psychiatric care , missed STD (female) Genital herpes Family History Grandmother Heart disease Hyperlipidemia Hypertension Thyroid disease Diabetes Grandfather Hyperlipidemia Mother Hyperlipidemia Hypertension Diabetes Denies family history of Colon cancer Ovarian cancer Breast cancer Uterine cancer Stroke Social History (Updated 05/16/24 @ 13:08 by Aracely Orourke RN) Smoking and tobacco/nicotine status: current every day tobacco/nicotine user cigarettes Packs smoked per day: 1 Years cigarettes smoked: 15 and e-cigarettes E-Cigarette Details: e-cigarette and with nicotine E-cig/vape details: 8000 last for 2 months Second hand smoke exposure: Yes Alcohol intake: current Alcohol intake frequency: holidays/special occasions only Alcohol type: hard liquor Substance/Drug Use: current Other substance/drug use details: for 7 years Adopted: No Caregiver/support person: No Lives independently: Yes Household members: significant other Housing: Other Details: abandoned house - homeless Marital status: Single Number of children: 1 Highest education level completed: 9th Grade service: No Current occupational status: unemployed Pets and animals: Yes Pets & animals: cat(s) Leisure activites: art and other Leisure activities details: hang out with friends Sexually active: Yes Do you think of yourself as: Straight/Heterosexual Current gender identity: Female Yarelis/Nondenominational: None Special yarelis needs: No Agree to transfusion: Yes Female Reproductive History: Para: 1 Spontaneous abortions: Yes (X1) Physical Exam GI: OTHER: Abdomen soft, nontender Course Vital Signs: Vital signs: Vital Signs Temperature 98.5 F 09/26/24 02:18 Pulse Rate 101 H 09/26/24 05:21 Respiratory Rate 18 09/26/24 02:18 Blood Pressure 119/79 09/26/24 05:21 Pulse Oximetry 100 09/26/24 05:21 Oxygen Delivery Me thod Room Air 09/26/24 05:21 MDM - Female Medical Decision Making On reassessment I talked to the patient about the test results. Her trichomonas and gonorrhea came back positive. Will give her 500 mg of IM ceftriaxone here and 500 mg of p.o. metronidazole. Will prescribe metronidazole for the next 7 days. We discussed symptoms that should prompt immediate return to the emergency department. We also discussed the importance of letting her sexual partners know. Will discharge at this time with precautions to return for worsening or changing symptoms. Lab Data Laboratory Results HCG, Qual Negative (Negative) 09/26/24 03:27 Urine Color Yellow (Yellow) 09/26/24 03:27 Urine Appearance Clear (CLEAR) 09/26/24 03:27 Urine pH 6.0 (5-7) 09/26/24 03:27 Ur Specific [place] 1.033 (1.005-1.030) H 09/26/24 03:27 Urine Protein Negative (Negative) 09/26/24 03:27 Urine Glucose (UA) Negative (Normal) 09/26/24 03:27 Urine Ketones Trace (Negative) 09/26/24 03:27 Urine Blood Negative (Negative) 09/26/24 03:27 Urine Nitrate Negative (Negative) 09/26/24 03:27 Urine Bilirubin Negative (Negative) 09/26/24 03:27 Urine Urobilinogen 2.0 mg/dL (Negative) H 09/26/24 03:27 Ur Leukocyte Esterase Negative (Negative) 09/26/24 03:27 Amorphous Sediment Not Reportable 09/26/24 03:27 C. trachomatis (PCR) Not detected (Negative) 09/26/24 03:27 C.trachomatis RNA (TMA) Cancelled 09/26/24 03:27 Chlamydia/GC Comment Cancelled 09/26/24 03:27 N. gonorrhoeae (PCR) Detected (Negative) 09/26/24 03:27 N.gonorrhoeae RNA (TMA) Cancelled 09/26/24 03:27 T. vaginalis (PCR) Detected (Negative) A 09/26/24 03:27 T. vaginalis Amp RNA Cancelled 09/26/24 03:27 No radiology studies performed this visit Discharge Plan Discharge Patient Disposition: Home Clinical Impression: Trichomoniasis, Gonorrhea Condition: Stable Prescriptions: New metronidazole 500 mg tablet 500 mg PO BID 7 Days Qty: 14 0RF No Action diphenhydramine HCl [Allergy (diphenhydramine)] 25 mg capsule 25 mg PO TID PRN Discharge Orders: Discharge ED (Routine); Ordered 09/26/24 Ordered By: Rahul Mejia Referrals: Skinny Galarza DO [Primary Care Provider, Family Practice] Patient Instructions: Gonorrhea (ED), Trichomoniasis (ED), Patient Portal & Yahir Instructions Print Language: Irish Coding Level of Care Code ED Account Coordinator for [place]
[2024-09-26 03:00] VITALS: BP 131/72; PULSE 93; O2SAT 100
[2024-09-26 03:42] LABS: Add Urine Microscopic? NO
[2024-09-26 03:50] LABS: Glucose Urine UA Negative (Normal); Nitrate Urine Negative (Negative)
[2024-09-26 04:00] LABS: Specific Gravity, Urine 1.033 (1.005-1.030)
[2024-09-26 04:01] LABS: HCG Qualitative Urine. Negative (Negative)
[2024-09-26 04:11] LABS: Charge for UA Resulting for Rev
[2024-09-26 04:53] LABS: Trichomonas vaginalis (PCR) Detected (Negative)
[2024-09-26 05:21] VITALS: BP 119/79; PULSE 101; O2SAT 100
[2024-09-26 05:22] LABS: Neisseria Gonorrhea DETECTED (Negative)
[2024-09-26 05:42] VITALS: BP 108/73; PULSE 94; O2SAT 98
[2024-09-26] MEDS: cefTRIAXone 500 MG in water for injection-sterile 1 ML IM (05:57)
== END 2024-09-26 06:24 | disposition home or self-care (01) ==
PROVIDERS: Emergency Provider Emergency Medicine; PCP Electrodiagnostic Medicine
DX: A59.01 Trichomonal vulvovaginitis (principal); A54.02 Gonococcal vulvovaginitis, unspecified; F17.290 Nicotine dependence, other tobacco product, uncomplicated
CPT/HCPCS: 81003; 81025; 87491; 87591; 87661; 96372; 99284; J0696; J9999

== ENCOUNTER 2025-01-01 08:15 | Emergency (ER) | payer SELFPAY ==
[2024-05-17 16:35] VITALS: BP 121/76; BMI 32.7
--- NOTE | 2025-01-01 08:18 | XRR_ITS ---
PROCEDURE INFORMATION: Exam: XR Right Ankle Exam date and time: 01/01/2025 8:22 AM Age: 29 years old Clinical indication: Injury or trauma; Other: Twisted right ankle; Sprain or strain; Additional info: Traumatic ankle pain TECHNIQUE: Imaging protocol: Radiologic exam of the right ankle. Views: 3 or more views. COMPARISON: No relevant prior studies available. FINDINGS: Bones/joints: Normal. Soft tissues: Normal. XR/XR ankle RT min 3V* [id number] IMPRESSION: No acute findings.
--- OUTSIDE RECORDS SUMMARY | 2025-01-01 08:20 | XMS_ITS | Encounter Summary ---
Author Organization [facility] Address [address] [facility] Attn: Epic [place] [address] Care Team Providers Care Waiter/Waitress Club Name Role Phone Unavailable Primary Care Provider Unavailabl e Encounter Details Date Type Department Care Team (Late st Contact Info) Description 02/10/2000 [place] [address] [facility] [address] [place] [address] Social History Tobacco Use Types Packs/Day Years Used Date Smoking Tobacco: Never Assessed Comments Unknown Sex and Gender Information Value Date Recorded Sex Assigned at Not on file 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
--- OUTSIDE RECORDS SUMMARY | 2025-01-01 08:20 | XMS_ITS | Encounter Summary ---
Author Organization [facility] Address [address] [place] [address] Care Team Providers Care Addictions Recovery Specialist Name Role Phone Unavailable Primary Care Provider Unavailabl e Encounter Details Date Type Department Care Team (Latest Contact Info) Description 07/31/2001 Outpatient Historical [facility] Pediatric Neurology[place] [address] [place] [phone] [place] [address] [facility] [address] [place] [address] PSYCHO EPI W/O MENTN INTRACTABLE (CMS/HCC) (Primary Dx) Social History Tobacco Use Types Packs/Day Years Used Date Smoking Tobacco: Never Assessed Comments Unknown Sex and Gender Information Value Date Recorded Sex Assigned at Not on file 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
--- OUTSIDE RECORDS SUMMARY | 2025-01-01 08:20 | XMS_ITS | Encounter Summary ---
Author Organization [facility] Address [address] [place] [address] Care Team Providers Care Cardiographer Name Role Phone Unavailable Primary Care Provider Unavailabl e Encounter Details Date Type Department Care Team (Latest Contact Info) Description 02/08/2001 Outpatient Historical [facility] Pediatric Neurology-[place] [address] [place] [phone] [place] [address] [facility] [address] [place] [address] PSYCHO EPI W/O MENTN INTRACTABLE (CMS/HCC) (Primary Dx) Social History Tobacco Use Types Packs/Day Years Used Date Smoking Tobacco: Never Assessed Comments Unknown Sex and Gender Information Value Date Recorded Sex Assigned at Not on file 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
--- OUTSIDE RECORDS SUMMARY | 2025-01-01 08:20 | XMS_ITS | Encounter Summary ---
Author Organization [facility] Address [address] [place] [address] Care Team Providers Care Human Resources Benefits Assistant Name Role Phone Unavailable Primary Care Provider Unavailabl e Encounter Details Date Type Department Care Team (Latest Contact Info) Description 11/11/1999 Outpatient Historical [facility] Pediatric Neurology-[place] [address] [place] [phone] [place] [address] [facility] [address] [place] [address] Localization-related (focal) (partial) epilepsy and epileptic syndromes with complex partial seizures, without mention of intractable epilepsy (Primary Dx) Social History Tobacco Use Types Packs/Day Years Used Date Smoking Tobacco: Never Assessed Comments Unknown Sex and Gender Information Value Date Recorded Sex Assigned at Not on file Legal Sex Female 5:27 AM AWS ARCHITECT Gender Identity Not on file Sexual Orientation Not on file documented as of this encounter Plan of Treatment Not on file documented as of this encounter Visit Diagnoses Diagnosis Localization-related (focal) (partial) epilepsy and epileptic syndromes with complex partial seizures, without mention of intractable epilepsy- Primary documented in this encounter
--- OUTSIDE RECORDS SUMMARY | 2025-01-01 08:20 | XMS_ITS | Clinical Summary ---
Author Organization [employer] Address [address] [facility] Attn: [place] [address] Care Team Providers Care Manager Equity Name Role Phone Unavailable Primary Care Provider [...] drink = 0.6 oz pur e alcohol) Feeling Safe Answer Date Recorded Are you in a relationship wi th someone who hurts you emotionally and/or physically? No 11/08/2022 Comments Unknown Sex and Gender Information Value Date Recorded Sex Assigned at Not on file Legal Sex Female 11:31 AM LEAD LOADER Gender Identity Not on file Sexual Orientation [...] Health Maintenance Due Date Last Done Comments CERVICAL CANCER SCREENING 01/24/2017 HPV/Cotest (21-29) 01/24/2017 PAP SMEAR 01/24/2017 HPV VACCINES (1 - 3-dose SCD M series) 01/24/2023 INFLUENZA VACCINE (#1) 2024 DTAP/TDAP/TD VACCINES (7 - T d or Tdap) 03/13/2031 03/13/2021, 03/02/2000, 10/30/1997, Additional history exists HEPATITIS B VACCINES Completed 1996, 1996, 1996 Insurance
--- OUTSIDE RECORDS SUMMARY | 2025-01-01 08:20 | XMS_ITS | Encounter Summary ---
Author Organization [facility] Address [address] [facility] Attn: [place] [address] Care Team Providers Care Manager Mechanical Maintenance Name Role Phone Unavailable Primary Care Provider Unavailabl e Encounter Details Date Type Department Care Team (Late st Contact Info) Description 07/31/2001 [place] [address] [facility] [address] [place] [address] Social History Tobacco Use Types Packs/Day Years Used Date Smoking Tobacco: Never Assessed Comments Unknown Sex and Gender Information Value Date Recorded Sex Assigned at Not on file 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
--- OUTSIDE RECORDS SUMMARY | 2025-01-01 08:20 | XMS_ITS | Encounter Summary ---
Author Organization [facility] Address [address] [place] [address] Care Team Providers Care Microelectronics Engineer Name Role Phone Unavailable Primary Care Provider Unavailabl e Encounter Details Date Type Department Care Team (Latest Contact Info) Description 02/10/2000 Outpatient Historical [facility] Pediatric Neurology-[place] [address] [place] [phone] [place] [address] [facility] [address] [place] [address] Localization-related (focal) (partial) epilepsy and epileptic syndromes with complex partial seizures, without mention of intractable epilepsy (Primary Dx) Social History Tobacco Use Types Packs/Day Years Used Date Smoking Tobacco: Never Assessed Comments Unknown Sex and Gender Information Value Date Recorded Sex Assigned at Not on file 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
--- OUTSIDE RECORDS SUMMARY | 2025-01-01 08:20 | XMS_ITS | Encounter Summary ---
Author Organization [facility] Address [address] [place] [address] Care Team Providers Care Crossbar Frame Wirer Name Role Phone Unavailable Primary Care Provider Unavailabl e Encounter Details Date Type Department Care Team (Late st Contact Info) Description 08/08/2000 Outpatient [place] [address] [facility] [address] [place] [address] Unspecified epilepsy without mention of intractable epilepsy (CMS/HCC) (Primary Dx) Social History Tobacco Use Types Packs/Day Years Used Date Smoking Tobacco: Never Assessed Comments Unknown Sex and Gender Information Value Date Recorded Sex Assigned at Not on file Legal Sex Female 5:27 AM 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
--- OUTSIDE RECORDS SUMMARY | 2025-01-01 08:20 | XMS_ITS | Encounter Summary ---
Author Organization [facility] Address [address] [place] [address] Care Team Providers Care Cupola Liner Helper Name Role Phone Unavailable Primary Care Provider Unavailabl e Encounter Details Date Type Department Care Team (Latest Contact Info) Description 08/08/2000 Outpatient Historical [facility] Pediatric Neurology-[place] [address] [place] [phone] [place] [address] [facility] [address] [place] [address] Localization-related (focal) (partial) epilepsy and epileptic syndromes with complex partial seizures, without mention of intractable epilepsy (Primary Dx) Social History Tobacco Use Types Packs/Day Years Used Date Smoking Tobacco: Never Assessed Comments Unknown Sex and Gender Information Value Date Recorded Sex Assigned at Not on file 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
--- OUTSIDE RECORDS SUMMARY | 2025-01-01 08:20 | XMS_ITS | Clinical Summary ---
Author Organization [facility] Address [address] 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
[2025-01-01 08:21] VITALS: BP 98/74; PULSE 98; RESP 14; O2SAT 100
--- NOTE | 2025-01-01 08:28 | ED_ITS ---
HPI - Extremity Problem General: Chief complaint: Extremity Injury, Lower Stated complaint: R foot pain Time Seen by Provider: 01/01/25 08:18 History of Present Illness: 29-year-old female no chronic medical pr oblems presents emergency room with right ankle pain. She says she was jumping over something and it twisted. This was yesterday. She is walking on it but she says it hurts. She has some swelling. Neurovascularly intact. Related Data Home Medications ?Medication ?Instructions ?Recorded ?Confirmed diphenhydramine HCl 25 mg capsule 25 mg PO TID PRN 05/16/24 (Allergy (diphenhydramine)) Allergies Allergy/AdvReac Type Severity Reaction Status Date / Time Sulfa (Sulfonamide Allergy ALGY-Rash Verified 05/16/24 12:27 Antibiotics) Review of Systems Narrative: Constitutional symptoms: Negative except as documented in HPI. Skin symptoms: Negative except as documented in HPI. Eye symptoms: Negative except as documented in HPI. ENMT symptoms: Negative except as documented in HPI. Respiratory symptoms: Negative except as documented in HPI. Cardiovascular symptoms: Negative except as documented in HPI. Gastrointestinal symptoms: Negative except as documented in HPI. Genitourinary symptoms: Negative except as documented in HPI. Musculoskeletal symptoms: Negative except as documented in HPI. Neurologic symptoms: Negative except as documented in HPI. Psychiatric symptoms: Negative except as documented in HPI. Endocrine symptoms: Negative except as documented in HPI. [facility] ED PFSH: Medical History (Updated 01/01/25 @ 09:00 by Viola Rodriguez MD) Psychiatric care , missed STD (female) Genital herpes Family History Grandmother Heart disease Hyperlipidemia Hypertension Thyroid disease Diabetes Grandfather Hyperlipidemia Mother Hyperlipidemia Hypertension Diabetes Denies family history of Colon cancer Ovarian cancer Breast cancer Uterine cancer Stroke Social History (Updated 05/16/24 @ 13:08 by Aracely Orourke RN) Smoking and tobacco/nicotine status: current every day tobacco/nicotine user cigarettes Packs smoked per day: 1 Years cigarettes smoked: 15 and e-cigarettes E-Cigarette Details: e-cigarette and with nicotine E-cig/vape details: 8000 last for 2 months Second hand smoke exposure: Yes Alcohol intake: current Alcohol intake frequency: holidays/special occasions only Alcohol type: hard liquor Substance/Drug Use: current Other substance/drug use details: for 7 years Adopted: No Caregiver/support person: No Lives independently: Yes Household members: significant other Housing: Other Details: abandoned house - homeless Marital status: Single Number of children: 1 Highest education level completed: 9th Grade service: No Current occupational status: unemployed Pets and animals: Yes Pets & animals: cat(s) Leisure activites: art and other Leisure activities details: hang out with friends Sexually active: Yes Do you think of yourself as: Straight/Heterosexual Current gender identity: Female Yarelis/Church: None Special yarelis needs: No Agree to transfusion: Yes Female Reproductive History: Para: 1 Spontaneous abortions: Yes (X1) Physical Exam Narrative: EXAM NARRATIVE: General: Alert, no acute distress. Skin: Warm, dry. Head: Normocephalic, atraumatic. Neck: Supple, trachea midline. Eye: Extraocular movements are intact. Ears, nose, mouth and throat: mucosa moist. Cardiovascular: Regular, Normal peripheral perfusion. Respiratory: Lungs are clear to auscultation, respirations are non-labored, breath sounds are equal, Symmetrical chest wall expansion. Gastrointestinal: Soft, Nontender, Non distended Musculoskeletal: Normal ROM, no deformity. Neurological: Alert and oriented, No focal neurological deficit observed. Psychiatric: Cooperative, appropriate mood & affect. Course Vital Signs: Vital signs: Vital Signs Pulse Rate 100 01/01/25 09:01 Respiratory Rate 14 01/01/25 08:21 Blood Pressure 118/99 01/01/25 09:01 Pulse Oximetry 100 01/01/25 09:01 MDM - Extremity (Nontraumatic) Medical Decision Making Medical decision making Patient's reason for coming to the emergency room: Social determinants: Unemployed I reviewed the patient's medical record. Patient's last visit to the emergency room was in September I reviewed the patient's current home meds No chronic medications Alternate historians: None Differential diagnosis including but not limited to and based on the above HPI, review of systems and physical exam: In this patient with a musculoskeletal extremity traumatic injury and x-ray is being ordered to rule out fractures and dislocations. Orders placed to evaluate differential diagnosis based on the above differential, HPI and physical exam X-ray of the right ankle: No fracture or dislocation. This was reviewed and interpreted by myself the emergency room physician. I also reviewed the radiology report. Reexamination: Patient remained stable. No increased work of breathing. No altered mental status. No focal motor deficits. Assessment and plan: Ankle sprain - Discharged home - Discussed plan with patient. Answered any questions. - Evaluation and treatment of this problem were appropriate in the emergency setting. Lab Data Radiology Impressions Ankle X-Ray 01/01/25 08:18 IMPRESSION: No acute findings. All radiology interpretation(s) finalized by discharge Discharge Plan Discharge Patient Disposition: Home Clinical Impression: Ankle sprain and strain Condition: Stable Prescriptions: No Action diphenhydramine HCl [Allergy (diphenhydramine)] 25 mg capsule 25 mg PO TID PRN Discharge Orders: Discharge ED (Routine); Ordered 01/01/25 Ordered By: Viola Rodriguez Referrals: Skinny Galarza DO [Primary Care Provider, Family Practice] Discharge Diet: Usual diet Discharge Activity: Increase activity as tolerated Patient Instructions: Ankle Sprain (ED), Opioid Safety, Pain Management, Patient Portal & Yahir Instructions Activity Restrictions/Additional Instructions: Thank you for choosing [facility] for your healthcare needs today. You have been screened and evaluated and felt safe for discharge. Health conditions do change or evolve sometimes and as such it is important that you follow up with your Primary Doctor to be re checked, 3-5 days is a general good time frame for follow up. You are always welcome to return to the ED for re assessment if your symptoms are worsening or you have new concerns Print Language: Slovak Coding Level of Care Code ED Civil Litigation Attorney for [place]
[2025-01-01 08:56] VITALS: BP 114/76; PULSE 100; O2SAT 95
[2025-01-01 09:01] VITALS: BP 118/99; PULSE 100; O2SAT 100
== END 2025-01-01 09:05 | disposition home or self-care (01) ==
PROVIDERS: Emergency Provider Emergency Medicine; PCP Electrodiagnostic Medicine
DX: S93.401A Sprain of unspecified ligament of right ankle, initial encounter (principal); F17.210 Nicotine dependence, cigarettes, uncomplicated; F17.290 Nicotine dependence, other tobacco product, uncomplicated; X58.XXXA Exposure to other specified factors, initial encounter
CPT/HCPCS: 73610; 99283